=== PATIENT | male | born 1945 | race Caucasian/White ===

== ENCOUNTER 2024-09-13 13:48 | Observation (INO) ==
[2024-09-13 14:28] LABS: Basophils # (auto) 0.05 K/uL (0.00-0.20); Basophils % (auto) 0.6 %; Eosinophils # (auto) 0.23 K/uL (0.00-0.50); Eosinophils % (auto) 2.9 %; Hematocrit (blood only) 42.5 % (42.0-52.0); Hemoglobin 14.5 g/dl (14.0-18.0); Immature Granulocytes # (auto) 0.01 K/uL (0.01-0.20); Immature Granulocytes % (auto) 0.1 %; Lymphocytes # (auto) 2.33 K/uL (1.20-3.40); Lymphocytes % (auto) 29.4 %; Mean Corpuscular Hemoglobin 28.1 pg (25.0-34.0); Mean Corpuscular Hgb Conc 34.1 g/dL (32.0-36.0); Mean Corpuscular Volume 82.4 fL (80.0-100.0); Monocytes # (auto) 0.71 K/uL (0.11-0.59); Neutrophils # (auto) 4.59 K/uL (1.40-6.50); Platelet Count 210 K/uL (130-400); RDW Coefficient of Variation 13.6 % (11.5-14.5); RDW Standard Deviation 41.1 fL (36.4-46.3); Red Blood Count 5.16 M/uL (4.70-6.10); White Blood Count 7.92 K/ul (4.8-10.8)
[2024-09-13 14:31] LABS: Base Excess VBG 0.5 mEq/L; HCO3 VBG 27 mmol/L; Oxygen Saturation VBG < 60.0 %; PCO2 VBG 50 mmHg (38-50); PO2 VBG 24 mmHg; pH VBG 7.34 (7.36-7.41)
[2024-09-13] MEDS: SODIUM CHLORIDE 0.9% 1,000 ML IV ONE ×2 (14:36→17:10)
[2024-09-13 14:41] LABS: Albumin Level 4.4 gm/dl (3.4-5.0); Bilirubin,Total 0.5 mg/dl (0.2-1.0); Calcium 10.1 mg/dl (8.6-10.3); Magnesium 1.6 mg/dl (1.7-2.4); Potassium 4.1 mmol/L (3.5-5.1)
[2024-09-13 14:52] LABS: Albumin Globulin Ratio 1.5 (0.9-2); BUN Creatinine Ratio 16.8 (10-20); Creatinine Clr Calc Pharmacy 28.9 ml/min; Total Protein 7.4 gm/dl (6.0-8.3)
--- NOTE | 2024-09-13 16:05 | CT Scan Report ---
ABDOMEN AND PELVIS CT WITHOUT CONTRAST CT DOSE: 1164.66 mGy.cm HISTORY: cecil TECHNIQUE: Multiaxial CT images of the abdomen and pelvis were performed without contrast. A dose lo wering technique was utilized adhering to the principles of ALARA. COMPARISON STUDY: None FINDINGS: ABDOMEN: Liver, gallbladder, spleen, pancreas, and adrenal glands have an unremarkable non-IV contras t appearance. There is no hydronephrosis. There are a few tiny bilateral renal calculi. No ureteral c alculi. There are mild atherosclerotic calcifications. No abdominal aortic aneurysm. Pelvis: There is a lobulated intraluminal mass anteriorly at the urinary bladder measuring 4 cm with morphology suspicious for urinary bladder cancer. Prostate is mildly enlarged. Urinary bladder is mil dly distended. There is extensive sigmoid diverticulosis. No acute diverticulitis. There is moderate retained stool. No bowel inflammation or obstruction. No free fluid or free air. No enlarged adenopat hy. Osseous structures: There is severe lumbar degenerative disc disease. There is grade 1 anterolisthesi s of L5 on S1 with pars defects at that level. No acute osseous findings. There is mild scoliosis. IMPRESSION: 1. Urinary bladder mass suspicious for malignancy. 2. Otherwise no acute findings seen. 3. A few tiny bilateral renal calculi with no hydronephrosis or ureteral calculi. 4. Otherwise as described. ACT 112: Positive. There are findings on this exam that require communication between the performing entity and the patient following Patient Test Result Information Act ([place] Act 112) guidelines. The above report was generated using voice recognition software. It may contain grammatical, syntax o r spelling errors. Electronically signed by: Luis Manuel Park M.D. 09/13/2024 4:03 PM
[2024-09-13 16:21] LABS: Appearance Urine Clear (Clear); Bacteria Urine Automated None Seen (None Seen); Bilirubin Urine Negative (Negative); Blood Urine 3+ (Negative); Color Urine Yellow; Epithelial Cell Urine Auto 0-2 /hpf (0-2); Glucose Urine UA 3+ (Negative); Ketones Urine Negative (Negative); Leukocyte Esterase Urine Negative (Negative); Nitrite Urine Negative (Negative); Protein Urine 2+ (Negative); RBC Urine Automated >20 /hpf (0-2); Specific Gravity Urine 1.023 (1.000-1.030); Urobilinogen Urine Negative (Negative); WBC Urine Automated 21-50 /hpf (0-5)
[2024-09-13] MEDS ORDERED: STAT IV Infusion **Titration per Protocol STA (16:45)
[2024-09-13] MEDS ORDERED: PHARMACY GLYCEMIC MGMT CONSULT PRN (16:45)
[2024-09-13] MEDS: MAGNESIUM SULFATE / D5W 1 GM/100 ML BAG IV SCH (17:16)
--- NOTE | 2024-09-13 17:37 | History & Physical Report ---
Date of Service September 13, 2024 Assessment & Plan (1) Diabetes mellitus with hyperglycemia, without long-term current use of insulin: (2) Acute kidney injury: (3) Mass of urinary bladder: (4) Hematuria: (5) Hypomagnesemia: (6) Electrolyte abnormality: (7) Hypertension: (8) Chronic renal failure (CRF), stage 3a: (9) Coronary disease: Plan Patient is a 79-year-old gentleman critically ill with uncontrolled diabetes and severe hyperglycemia. This resulted in hypotension and acute kidney injury due to intravascular volume depletion. Patient also with hematuria and noted findings on CT scan concerning for bladder mass. Patient requires hospital level care and interventions including IV medications and specialty consultation. Admit to a monitored setting in the hospital Given additional IV fluid bolus and continue IV fluid resuscitation IV insulin drip, monitor insulin needs over the next 24 hours and transition to subcutaneous insulin Pharmacy consultation for assistance with glycemic management Check hemoglobin A1c, most recent hemoglobin A1c 12.6 in July 2024 Hold amlodipine and losartan in the setting of hypotension and acute kidney injury, continue metoprolol with hold parameters Hold aspirin due to hematuria Consult urology for further evaluation of bladder mass Monitor laboratory studies, anticipate sodium improving as glucose improves. Anticipate renal function improving with hydration Replace magnesium IV, monitor level Consult healthcare educator, informed patient and son at bedside that I anticipate patient will need to go home on insulin to manage his diabetes in the setting of extremely elevated hemoglobin A1c Discussed advanced directives, patient request to be full code Son at bedside updated to patient's condition and overall plan of care History of Present Illness Chief Complaint: Hyperglycemia, polyuria, polydipsia Primary Care Provider: Monserrat Altamirano PA-C Patient is a 79-year-old gentleman with known diabetes just recently presented to his new PCP within the past month. He was complaining of significant polyuria at that time. Patient had some laboratory workup and was noted to be quite hyperglycemic with a significantly elevated hemoglobin A1c. Patient also was treated for urinary tract infection. Returned to his PCP again today complaining of weakness and fatigue and generalized malaise. Also reporting that his sugars are extremely elevated which is unusual for him. PCP sent him to the emergency room for concerns of DKA. In the emergency room severe hyperglycemia was confirmed. Patient was not in DKA. But he did show some evidence of acute kidney injury and hypotension most likely due to dehydration. Also had several electrolyte abnormalities. Referred to our service for further evaluation. At time of evaluation the patient is feeling a little bit better after 1 L of saline. Denies any fever or chills. No cough or cold symptoms. No chest pain or shortness of breath. Does admit to polydipsia and polyuria. Has not really noticed significant blood in his urine. States that his stools have been slightly abnormal and that they are not as frequent or as bulky over the last couple weeks. No blood in his stool. No swelling in his hands arms legs or feet. He is under the impression that his diabetes is very well-co ntrolled and its only gotten out of control within the last couple weeks. When I informed him that his A1c was greater than 12 just about a year ago and greater than 9 2 years ago indicating that his diabetes has been uncontrolled for quite some time he seemed shocked to find out this information. He has never been on insulin. Has not even been regularly checking his sugar due to the fact that he thought his sugars are well-controlled. Patient denies any smoking. Reports that he has not had alcohol beverage for greater than 2 years. Allergies Allergy/AdvReac Type Severity Reaction Status Date / Time codeine Allergy Unknown Verified 07/06/09 03:20 Home Medications Medication Instructions Recorded Confirmed Type amlodipine 5 mg tablet 5 mg PO UD 09/13/24 09/13/24 History amoxicillin 500 mg capsule 500 mg PO BID 09/13/24 09/13/24 History aspirin 325 mg tablet 325 mg PO DAILY 09/13/24 09/13/24 History empagliflozin 10 mg tablet 10 mg PO UD 09/13/24 09/13/24 History (Jardiance) ibuprofen 800 mg PO DIRECTED PRN Pain 09/13/24 09/13/24 History losartan 100 mg tablet 100 mg PO UD 09/13/24 09/13/24 History metformin 500 mg tablet 500 mg PO BID 09/13/24 09/13/24 History metoprolol succinate 50 mg 50 mg PO UD 09/13/24 09/13/24 History tablet,extended release 24 hr mirtazapine 45 mg tablet 45 mg PO PM 09/13/24 09/13/24 History rosuvastatin 40 mg tablet 40 mg PO DAILY 09/13/24 09/13/24 History sitagliptin phosphate 50 mg tablet 50 mg PO UD 09/13/24 09/13/24 History (Januvia) tamsulosin 0.4 mg capsule 0.4 mg PO QAM 09/13/24 09/13/24 History venlafaxine 75 mg capsule,extended 225 mg PO DAILY 09/13/24 09/13/24 History release 24 hr Past Med/Surg History Problem List (Updated 09/13/24 @ 17:36 by Dioni Rutherford DO) History of cardiac catheterization Renal calculi Coronary disease Chronic renal failure (CRF), stage 3a Hypertension Mass of urinary bladder Hematuria Electrolyte abnormality Hypomagnesemia Acute kidney injury Diabetes mellitus with hyperglycemia, without long-term current use of insulin Social History Smoking Status: Former smoker Preferred Language: Burmese Feels Safe at Home: Yes Review of Systems Review of Systems: Pertinent positive and negative review of systems as mentioned in the HPI Physical Exam Physical Exam: Constitutional: Alert, ill in appearance, nontoxic HEENT: Mucous membranes moist. Sclera clear Neck: Soft, no adenopathy Lungs: Clear to auscultation, decreased, no wheezes rales or rhonchi CV: S1-S2, regular Abdomen: Soft, nontender, nondistended Extremities: No significant edema Musculoskeletal: No significant joint tenderness Neuro: No focal deficits Psych: Cooperative, flat affect Results & Data Results & Data Vital Signs (Past 12 Hours) Vital Signs Temp Pulse Resp BP Pulse Ox O2 Del Method 09/13/24 13:54 36.7 C 66 18 95/61 L 95 Room Air Diagnostic Findings Reviewed imaging, laboratory and diagnostic studies. Pertinent findings as below. CBC within normal ranges Venous pH 7.34 Sodium 131 Potassium 4.1 Chloride at 93 Carbon dioxide 31 BUN 34 Creatinine 2.02 Glucose of 464 Magnesium 1.6 ALT 53 Alk phos 109 Urinalysis significant for: 3+ glucose, 3+ blood, negative nitrite, negative leukocyte esterase, no bacteria CT of the abdomen pelvis report reviewed noted a urinary bladder mass concerning for malignancy, few small bilateral renal calculi with no evidence of obstruction. Reviewed outside EMR: Reviewed past medical, surgical, family, social history Reviewed outpatient medication list Hemoglobin A1c 12.6 on 08/09/2024 Echocardiogram June 2024: Normal ejection fraction 60-65%. No significant wall motion abnormalities, no significant pulmonary hypertension, no significant valve abnormalities Code Status & VTE Plan VTE Prophylaxis Plan VTE Prophylaxis will be ordered: Yes
[2024-09-13] MEDS: INSULIN REGULAR 250 UNITS in SODIUM CHLORIDE 0.9% 247.5 ML IV SCH (17:39)
[2024-09-13] MEDS ORDERED: ACETAMINOPHEN 325 MG TAB PO PRN (18:41)
[2024-09-13] MEDS ORDERED: ALUMINUM/MAGNESIUM SUSP 30 ML UDC PO PRN (18:41)
--- NOTE | 2024-09-13 19:58 | Urology Consultation ---
Date of Consultation September 13, 2024 Assessment & Plan (1) Mass of urinary bladder: Patient has been admitted to the hospitalist service. From urologic perspective we recommend the following: Patient is currently being treated for uncontrolled diabetes we will defer management of this to primary service Concerning the patient's bladder mass, and underlying malignancy has not been excluded I will order a urine cytology The patient will likely require cystoscopy in the future Would monitor the patient's urinary habits, particular in the setting of gross hematuria. If the patient develops any urinary retention straight catheterization or Arita catheter placement can be employed but at the present time this does not appear to be needed Additional recommendations will be forthcoming based on his clinical course as unfolds History of Present Illness Reason for Consultation: Bladder mass Attending Physician: Dioni Rutherford, History of Present Illness This is a 79-year-old male who was admitted to the hospital earlier today. The patient presented to his primary care physician's office earlier this month with complaints of polyuria. There is concern the patient was suffering from a urinary tract infection for which he was treated. Patient returned to his primary care physician earlier today for follow-up and is complaining of generalized weakness and malaise. Patient is noted to have markedly elevated blood sugar in the office and there was concern that he had DKA so he was sent to the emergency department for evaluation. As part of his evaluation he did have a CT scan abdomen pelvis showing a bladder mass which is described below. For this reason urology was asked to see the patient. I did question the patient not urologic symptoms and he does report having gross hematuria and on and off fashion with some blood clots for several weeks. He says that he has lost proximately 5 pounds over the past week or 2. He says that for the past several weeks he has had a weak urine stream but denies any dysuria. He does report urinary frequency. He denies any fevers, shakes, or chills. He denies any back or flank pain Since arrival to the hospital the patient has had labs and imaging which independent reviewed. A CT scan abdomen pelvis showed the patient had a mass in the urinary bladder concerning for malignancy. Labs including CBC were white blood cell count, hemoglobin, hematocrit, and platelet count were normal. Chemistry profile showed sodium was 131 with a normal potassium. BUN and creatinine were 34 and 2.0. (No labs were available for comparison). Urinalysis showed 21-50 white blood cells per high-power field but was negative for bacteria, leukocyte esterase, or nitrites. At the time my interview the patient was resting comfortably in bed and he was in no distress Allergies Allergy/AdvReac Type Severity Reaction Status Date / Time codeine Allergy Unknown Verified 07/06/09 03:20 Home Medications Medication Instructions Recorded Confirmed Type amlodipine 5 mg tablet 5 mg PO UD 09/13/24 09/13/24 History amoxicillin 500 mg capsule 500 mg PO BID 09/13/24 09/13/24 History aspirin 325 mg tablet 325 mg PO DAILY 09/13/24 09/13/24 History empagliflozin 10 mg tablet 10 mg PO UD 09/13/24 09/13/24 History (Jardiance) ibuprofen 800 mg PO DIRECTED PRN Pain 09/13/24 09/13/24 History losartan 100 mg tablet 100 mg PO UD 09/13/24 09/13/24 History metformin 500 mg tablet 500 mg PO BID 09/13/24 09/13/24 History metoprolol succinate 50 mg 50 mg PO UD 09/13/24 09/13/24 History tablet,extended release 24 hr mirtazapine 45 mg tablet 45 mg PO PM 09/13/24 09/13/24 History rosuvastatin 40 mg tablet 40 mg PO DAILY 09/13/24 09/13/24 History sitagliptin phosphate 50 mg tablet 50 mg PO UD 09/13/24 09/13/24 History (Januvia) tamsulosin 0.4 mg capsule 0.4 mg PO QAM 09/13/24 09/13/24 History venlafaxine 75 mg capsule,extended 225 mg PO DAILY 09/13/24 09/13/24 History release 24 hr Patient History Social History Smoking Status: Former smoker Hx Alcohol Use: No Hx Substance Use: No Preferred Language: Amharic Communication Ability: Effective 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 Required: No Beliefs That Will Affect Care: None Current Living Situation: Alone Other Information That Helps Us Care for You: No Feels Safe at Home: Yes Assistive Devices: Denture - Upper, Denture - Lower and Hearing Aid - Left Review of Systems Review of Systems: All systems reviewed & are unremarkable except as noted in HPI & below Physical Exam Constitutional: WD/WN, vitals as above Eyes: no conjunctival abnormality ENMT: Ears: no hearing impairment and no external ear abnormality Mouth: no oropharynx abnormality Neck: trachea midline Respiratory: normal respiratory effort; no respiratory distress and no labored breathing Cardiovascular: Rate/Rhythm: regular rate and regular rhythm Gastrointestinal (Abdomen): Soft and nontender to palpation Musculoskeletal: No gross orthopedic abnormalities Skin: no jaundice Neurologic: moves all extremities Psychiatric: A+Ox3, euthymic affect Genitourinary: No CVA tenderness with percussion bilaterally Results & Data Vital Signs (Past 12 Hours) Vital Signs Temp Pulse Pulse Resp BP BP Pulse Ox 09/13/24 18:47 36.7 C 55 L 136/74 100 09/13/24 18:11 49 L 22 111/62 98 09/13/24 17:56 51 L 09/13/24 17:22 54 L 20 89/62 L 98 09/13/24 13:54 36.7 C 66 18 95/61 L 95 O2 Del Method 09/13/24 18:47 Room Air 09/13/24 18:11 09/13/24 17:56 09/13/24 17:22 Room Air 09/13/24 13:54 Room Air PG Care Time/CCT Total # of Minutes Spent Total Time Spent with Patient: Total time spent is greater than 50% in coordination of care (as documented) at patient's floor/unit and/or counseling patient: Coding Level of Care Code 29248 INT INP/OBS CARE 3/75MIN Diagnoses Mass of urinary bladder N32.89
[2024-09-13] MEDS ORDERED: CARBOHYDRATES FOR HYPOGLYCEMIA PO PRN (20:00)
[2024-09-13] MEDS ORDERED: GLUCOSE 40% GEL 15 GM TUBE PO PRN (20:00)
[2024-09-13] MEDS ORDERED: GLUCAGON FOR INJ 1 MG VIAL SQ PRN (20:00)
[2024-09-13] MEDS ORDERED: GLUCOSE 10 TAB/TUBE PO PRN (20:00)
[2024-09-13] MEDS ORDERED: DEXTROSE 50% 50 ML SYRINGE IV PRN (20:00)
[2024-09-13] MEDS: INSULIN ASPART PER UNIT CHARGE SC SCH (20:23)
[2024-09-13] MEDS: SODIUM CHLORIDE 0.9% 1,000 ML IV SCH (20:26)
[2024-09-13] MEDS ORDERED: INSULIN ASPART PER UNIT CHARGE SC SCH (21:00)
[2024-09-13 21:34] LABS: Potassium 3.9 mmol/L (3.5-5.1)
[2024-09-13 21:39] LABS: BUN Creatinine Ratio 17.3 (10-20); Creatinine Clr Calc Pharmacy 33.7 ml/min
[2024-09-13] MEDS: MIRTAZAPINE SOLTAB 15 MG PO SCH (22:12)
--- NOTE | 2024-09-14 | Emergency Department Note ---
History of Present Illness General Chief complaint: Hyperglycemia Stated complaint: REF BY DOC,HYPERGLYCEMIA Time Seen by Provider: 09/13/24 15:10 History of Present Illness Provider complaint: High blood sugar 79-year-old male was referred to the emergency department by his PCP for high blood sugar. Patient reports they did blood work and they told him his blood sugar was high and told him to come to the emergency department. He denies any chest pain difficulty breathing nausea vomiting diarrhea. Patient does report difficulty urinating. No hematuria. No falls or traumas. Home Medications Medication Instructions Recorded Confirmed Type amlodipine 5 mg tablet 5 mg PO UD 09/13/24 09/13/24 History amoxicillin 500 mg capsule 500 mg PO BID 09/13/24 09/13/24 History aspirin 325 mg tablet 325 mg PO DAILY 09/13/24 09/13/24 History empagliflozin 10 mg tablet 10 mg PO UD 09/13/24 09/13/24 History (Jardiance) ibuprofen 800 mg PO DIRECTED PRN Pain 09/13/24 09/13/24 History losartan 100 mg tablet 100 mg PO UD 09/13/24 09/13/24 History metformin 500 mg tablet 500 mg PO BID 09/13/24 09/13/24 History metoprolol succinate 50 mg 50 mg PO UD 09/13/24 09/13/24 History tablet,extended release 24 hr mirtazapine 45 mg tablet 45 mg PO PM 09/13/24 09/13/24 History rosuvastatin 40 mg tablet 40 mg PO DAILY 09/13/24 09/13/24 History sitagliptin phosphate 50 mg tablet 50 mg PO UD 09/13/24 09/13/24 History (Januvia) tamsulosin 0.4 mg capsule 0.4 mg PO QAM 09/13/24 09/13/24 History venlafaxine 75 mg capsule,extended 225 mg PO DAILY 09/13/24 09/13/24 History release 24 hr Allergies Allergy/AdvReac Type Severity Reaction Status Date / Time codeine Allergy Unknown Verified 07/06/09 03:20 Past Med/Surg History Problem List (Updated 09/14/24 @ 00:00 by Parag Savage MD) History of cardiac catheterization Renal calculi Coronary disease Chronic renal failure (CRF), stage 3a Hypertension Mass of urinary bladder (Acute) Hematuria Electrolyte abnormality Hypomagnesemia Acute kidney injury (Acute) Diabetes mellitus with hyperglycemia, without long-term current use of insulin Social History Smoking Status: Former smoker Hx Alcohol Use: No Hx Substance Use: No Preferred Language: Mongolian Communication Ability: Effective Hairspring Vibrator Required: No Beliefs That Will Affect Care: None Current Living Situation: Alone Other Information That Helps Us Care for You: No Feels Safe at Home: Yes Assistive Devices: Denture - Upper, Denture - Lower and Hearing Aid - Left Physical Exam Vital Signs Vital Signs - 24 hr 09/13/24 13:54 Temperature 36.7 C Temperature Source Temporal Artery Scan Pulse Rate 66 Respiratory Rate 18 Respiratory Effort / Characteristics Non-Labored Spontaneous Respiratory Depth Normal Blood Pressure 95/61 L Blood Pressure Mean 72 Pulse Oximetry 95 Oxygen Delivery Method Room Air Sepsis Recent Fever Within 48 Hours No Sepsis New/Unexplained Change in Mental Status N/A Sepsis Action Taken by Nursing No Action Required Physical Exam GENERAL: He is oriented to person, place, and time. He appears well-developed and well-nourished. He does not appear distressed. HENT: Exam performed. - Head: Normocephalic and atraumatic. - Right Ear: External ear normal. No mastoid erythema - Left Ear: External ear normal. No mastoid erythema - Mouth/Throat: The oropharynx is clear and moist. No trismus in the jaw. No dental abscesses or uvula swelling. No oropharyngeal exudate or tonsillar abscesses. EYES: Conjunctivae and EOM are normal. Pupils are equal, round, and reactive to light. Right eye exhibits no discharge. Left eye exhibits no discharge. No scleral icterus. NECK: Normal range of motion. Neck supple. No JVD present.No rigidity. No tracheal deviation and normal range of motion present. CV: Normal rate, regular rhythm, normal heart sounds and intact distal pulses. There is no peripheral edema. Palpable radial pulses bue. PULM/CHEST: Effort normal and breath sounds normal. No respiratory distress. No stridor. He has no wheezes. He has no rales. - Chest Wall: He exhibits no tenderness. ABD: The abdomen is soft. He has no distension. No mass is present. There is no tenderness. There is no rebound, no guarding. MUSC/SKEL: Normal range of motion. There is no peripheral edema, tenderness or deformity. NEURO: He is alert and oriented to person, place, and time. He has normal strength. No cranial nerve deficit or sensory deficit. Coordination and gait normal. GCS eye subscore is 4. GCS verbal subscore is 5. GCS motor subscore is 6. Cerebellar tests wnl. SKIN: Skin is warm and dry. He is not diaphoretic. PSYCH: He has a normal mood and affect. Behavior is normal. Judgment and thought content normal. Course Course 1510: The patient was evaluated in room D1A. A complete history and physical exam was performed Cardiac monitoring: An order was placed for continuous cardiac monitoring. The monitor shows a rate of 50 with sinus rhythm interpreted by me Patient was seen during a time of extreme volume and extreme acuity in the emergency department. Nursing triage protocols were initiated and labs were drawn by protocol in the triage area. Labs show creatinine of 2 and glucose greater than 400 with no evidence of anion gap elevation. External medical records were reviewed they were obtained by Angeles the case technician. Patient's creatinine usually runs around 1-1.2. Will obtain CT of the abdomen pelvis given the patient's PAUL. IV fluids started on the patient. 1655: Vital signs stable. Imaging shows no kidney stones or obstructions but does show possible bladder mass. Urology Dr. Barnes was made aware of this. Patient be admitted to the [facility] team. Administered Medications Magnesium Sulfate/Dextrose (Magnesium Sulfate / D5w) 1 gm in 100 mls @ 50 mls/hr IV Q2H KIRSTIE Stop: 09/14/24 00:44 Last Admin: 09/13/24 22:09 Dose: 25 mls/hr Documented By: Infusion: 09/13/24 22:09 Dose: Infused Documented By: Admin: 09/13/24 20:25 Dose: 25 mls/hr Documented By: Infusion: 09/13/24 18:29 Dose: Infused Documented By: Admin: 09/13/24 17:33 Dose: 50 mls/hr Documented By: Infusion: 09/13/24 17:33 Dose: Infused Documented By: Admin: 09/13/24 17:16 Dose: 50 mls/hr Documented By: MAIKEL Insulin Human Regular 250 (units/ Sodium Chloride) 250 mls @ 1.4 mls/hr IV .Q24H KIRSTIE; Protocol Stop: 10/13/24 16:59 Last Titration: 04/15/25 23:25 Dose: 1.4 unit/hr, 1.4 mls/hr Documented By: PARISH Co-signed By: CHELSEA Titration: 09/13/24 22:24 Dose: 1.8 unit/hr, 1.8 mls/hr Documented By: PARISH Co-signed By: CHELSEA Titration: 09/13/24 21:21 Dose: 2.3 unit/hr, 2.3 mls/hr Documented By: PARISH Co-signed By: CHELSEA Titration: 09/13/24 20:24 Dose: 1.9 unit/hr, 1.9 mls/hr Documented By: PARISH Co-signed By: CHLESEA Titration: 09/13/24 19:36 Dose: 1.6 unit/hr, 1.6 mls/hr Documented By: PARISH Co-signed By: ANYI Admin: 09/13/24 17:39 Dose: 2 unit/hr, 2 mls/hr Documented By: MAIKEL Co-signed By: TIFFANI Sodium Chloride (Nss) 1,000 mls @ 125 mls/hr IV .Q8H KIRSTIE Stop: 09/14/24 18:40 Last Admin: 09/13/24 20:26 Dose: 125 mls/hr Documented By: PARISH Insulin Aspart (Insulin Aspart Per Unit Charge) 0 units SC ACHS KIRSTIE Stop: 10/13/24 19:59 Last Admin: 09/13/24 20:23 Dose: 4 units Documented By: PARISH Co-signed By: CHELSEA Mirtazapine (Mirtazapine Soltab 15 Mg) 45 mg PO PM KIRSTIE Stop: 10/13/24 20:59 Last Admin: 09/13/24 22:12 Dose: 45 mg Documented By: PARISH Discontinued Medications Sodium Chloride (Nss) 1,000 mls @ 999 mls/hr IV .Q1H1M ONE Stop: 09/13/24 15:32 Last Infusion: 09/13/24 15:37 Dose: Infused Documented By: Admin: 09/13/24 14:36 Dose: 999 mls/hr Documented By: DONNIE Sodium Chloride (Nss) 1,000 mls @ 999 mls/hr IV .Q1H1M ONE Stop: 09/13/24 17:44 Last Infusion: 09/13/24 18:29 Dose: Infused Documented By: Admin: 09/13/24 17:10 Dose: 999 mls/hr Documented By: MAIKEL Medical Decision Making Laboratory Data Attestation: I reviewed the patient's lab results. 09/13/24 14:14 09/13/24 20:41 Lab Results 09/13/24 09/13/24 09/13/24 Range/Units 14:05 14:14 14:20 WBC 7.92 (4.8-10.8) K/ul RBC 5.16 (4.70-6.10) M/uL Hgb 14.5 (14.0-18.0) g/dl Hct 42.5 (42.0-52.0) % MCV 82.4 (80.0-100.0) fL MCH 28.1 (25.0-34.0) pg MCHC 34.1 (32.0-36.0) g/dL RDW Std Deviation 41.1 (36.4-46.3) fL RDW Coeff of Merrick 13.6 (11.5-14.5) % Plt Count 210 (130-400) K/uL MPV 12.0 (9.4-12.4) fL Immature Gran % (Auto) 0.1 % Neut % (Auto) 58.0 % Lymph % (Auto) 29.4 % [place] % (Auto) 9.0 % Eos % (Auto) 2.9 % Baso % (Auto) 0.6 % Neut # (Auto) 4.59 (1.40-6.50) K/uL Lymph # (Auto) 2.33 (1.20-3.40) K/uL [place] # (Auto) 0.71 H (0.11-0.59) K/uL Eos # (Auto) 0.23 (0.00-0.50) K/uL Baso # (Auto) 0.05 (0.00-0.20) K/uL Immature Gran # (Auto) 0.01 (0.01-0.20) K/uL VBG pH 7.34 L (7.36-7.41) VBG pCO2 50 (38-50) mmHg VBG pO2 24 mmHg VBG HCO3 27 mmol/L VBG O2 Saturation < 60.0 % VBG Base Excess 0.5 mEq/L Sodium 131 L (136-145) mmol/L Potassium 4.1 (3.5-5.1) mmol/L Chloride 93 L (98-107) mmol/L Carbon Dioxide 31 (21-32) mmol/L Anion Gap 7 (3-11) BUN 34 H (6-23) mg/dl Creatinine 2.02 H (0.6-1.4) mg/dl Est Cr Clr Drug Dosing 28.9 ml/min eGFR 33.13 BUN/Creatinine Ratio 16.8 (10-20) Glucose 464 H* (70-99(Fasting)) mg/dl POC Glucose 449 H* (70-99) mg/dl Calcium 10.1 (8.6-10.3) mg/dl Magnesium 1.6 L (1.7-2.4) mg/dl Total Bilirubin 0.5 (0.2-1.0) mg/dl AST 33 (13-39) U/L ALT 53 H (7-52) U/L Alkaline Phosphatase 109 H (34-104) U/L Total Protein 7.4 (6.0-8.3) gm/dl Albumin 4.4 (3.4-5.0) gm/dl Globulin 3.0 (2.5-4.0) gm/dl Albumin/Globulin Ratio 1.5 (0.9-2) Urine Color Urine Appearance (Clear) Urine pH (4.5-7.5) Ur Specific Mayer (1.000-1.030) Urine Protein (Negative) Urine Glucose (UA) (Negative) Urine Ketones (Negative) Urine Blood (Negative) Urine Nitrite (Negative) Urine Bilirubin (Negative) Urine Urobilinogen (Negative) Ur Leukocyte Esterase (Negative) Urine WBC (Auto) (0-5) /hpf Urine RBC (Auto) (0-2) /hpf U Hyaline Cast (Auto) (0-2) /lpf U Epithel Cells (Auto) (0-2) /hpf Urine Bacteria (Auto) (None Seen) 09/13/24 09/13/24 Range/Units 15:44 17:06 WBC (4.8-10.8) K/ul RBC (4.70-6.10) M/uL Hgb (14.0-18.0) g/dl Hct (42.0-52.0) % MCV (80.0-100.0) fL MCH (25.0-34.0) pg MCHC (32.0-36.0) g/dL RDW Std Deviation (36.4-46.3) fL RDW Coeff of Merrick (11.5-14.5) % Plt Count (130-400) K/uL MPV (9.4-12.4) fL Immature Gran % (Auto) % Neut % (Auto) % Lymph % (Auto) % [place] % (Auto) % Eos % (Auto) % Baso % (Auto) % Neut # (Auto) (1.40-6.50) K/uL Lymph # (Auto) (1.20-3.40) K/uL [place] # (Auto) (0.11-0.59) K/uL Eos # (Auto) (0.00-0.50) K/uL Baso # (Auto) (0.00-0.20) K/uL Immature Gran # (Auto) (0.01-0.20) K/uL VBG pH (7.36-7.41) VBG pCO2 (38-50) mmHg VBG pO2 mmHg VBG HCO3 mmol/L VBG O2 Saturation % VBG Base Excess mEq/L Sodium (136-145) mmol/L Potassium (3.5-5.1) mmol/L Chloride (98-107) mmol/L Carbon Dioxide (21-32) mmol/L Anion Gap (3-11) BUN (6-23) mg/dl Creatinine (0.6-1.4) mg/dl Est Cr Clr Drug Dosing ml/min eGFR BUN/Creatinine Ratio (10-20) Glucose (70-99(Fasting)) mg/dl POC Glucose 315 H* (70-99) mg/dl Calcium (8.6-10.3) mg/dl Magnesium (1.7-2.4) mg/dl Total Bilirubin (0.2-1.0) mg/dl AST (13-39) U/L ALT (7-52) U/L Alkaline Phosphatase (34-104) U/L Total Protein (6.0-8.3) gm/dl Albumin (3.4-5.0) gm/dl Globulin (2.5-4.0) gm/dl Albumin/Globulin Ratio (0.9-2) Urine Color Yellow Urine Appearance Clear (Clear) Urine pH 6.0 (4.5-7.5) Ur Specific Mayer 1.023 (1.000-1.030) Urine Protein 2+ H (Negative) Urine Glucose (UA) 3+ H (Negative) Urine Ketones Negative (Negative) Urine Blood 3+ H (Negative) Urine Nitrite Negative (Negative) Urine Bilirubin Negative (Negative) Urine Urobilinogen Negative (Negative) Ur Leukocyte Esterase Negative (Negative) Urine WBC (Auto) 21-50 H (0-5) /hpf Urine RBC (Auto) >20 H (0-2) /hpf U Hyaline Cast (Auto) 3-5 H (0-2) /lpf U Epithel Cells (Auto) 0-2 (0-2) /hpf Urine Bacteria (Auto) None Seen (None Seen) Imaging Data Radiologist's Impression: Abdomen/Pelvis CT 09/13/24 15:[address] WITHOUT CONTRAST CT DOSE: 1164.66 mGy.cm HISTORY: paul TECHNIQUE: Multiaxial CT images of the abdomen and pelvis were performed without contrast. A dose lowering technique was utilized adhering to the principles of ALARA. COMPARISON STUDY: None FINDINGS: ABDOMEN: Liver, gallbladder, spleen, pancreas, and adrenal glands have an unremarkable non-IV contrast appearance. There is no hydronephrosis. There are a few tiny bilateral renal calculi. No ureteral calculi. There are mild atherosclerotic calcifications. No abdominal aortic aneurysm. Pelvis: There is a lobulated intraluminal mass anteriorly at the urinary bladder measuring 4 cm with morphology suspicious for urinary bladder cancer. Prostate is mildly enlarged. Urinary bladder is mildly distended. There is extensive sigmoid diverticulosis. No acute diverticulitis. There is moderate retained stool. No bowel inflammation or obstruction. No free fluid or free air. No enlarged adenopathy. Osseous structures: There is severe lumbar degenerative disc disease. There is grade 1 anterolisthesis of L5 on S1 with pars defects at that level. No acute osseous findings. There is mild scoliosis. IMPRESSION: 1. Urinary bladder mass suspicious for malignancy. 2. Otherwise no acute findings seen. 3. A few tiny bilateral renal calculi with no hydronephrosis or ureteral calculi. 4. Otherwise as described. ACT 112: Positive. There are findings on this exam that require communication between the performing entity and the patient following Patient Test Result Information Act ([place] Act 112) guidelines. The above report was generated using voice recognition software. It may contain grammatical, syntax or spelling errors. Electronically signed by: Luis Manuel Park M.D. 09/13/2024 4:03 PM [facility] Narrative 1510: The patient was evaluated in room D1A. A complete history and physical exam was performed Cardiac monitoring: An order was placed for continuous cardiac monitoring. The monitor shows a rate of 50 with sinus rhythm interpreted by me Patient was seen during a time of extreme volume and extreme acuity in the emergency department. Nursing triage protocols were initiated and labs were drawn by protocol in the triage area. Labs show creatinine of 2 and glucose greater than 400 with no evidence of anion gap elevation. External medical records were reviewed they were obtained by Angeles the case technician. Patient's creatinine usually runs around 1-1.2. Will obtain CT of the abdomen pelvis given the patient's PAUL. IV fluids started on the patient. 1655: Vital signs stable. Imaging shows no kidney stones or obstructions but does show possible bladder mass. Urology Dr. Barnes was made aware of this. Patient be admitted to the Orth[facility]edic Hospitalist team. Impression & Plan Mass of urinary bladder, Acute kidney injury Discharge Plan Visit Data Chief Complaint: Hyperglycemia Stated Complaint: REF BY DOC,HYPERGLYCEMIA ED Provider: Parag Savage Discharge Problem: Mass of urinary bladder, Acute kidney injury Patient Disposition: Admitted As Inpatient Discharge Instructions Interventions: ED Discharge Assessment Last Done: 09/13/24 18:18
--- OUTSIDE RECORDS SUMMARY | 2024-09-14 01:21 | External Medical Summary | Summary of Care ---
Author Name Unknown Organization [facility] Address [address] [address] Phone [phone] Care Team Providers Care Sampling Expert Name Role Phone Tahir Schrader DO Primary Care Provider Reason for Referral * Evaluate & Treat - Unlimited Visits (Within 30 days (routine)) - Authorized Specialty Diagnoses / Procedures Referred By Contstacey t Referred To Contact Urology Diagnoses Hematuria, unspecified type Chronic kidney disease, stage 3a (HCC) Urinary frequency Tahir Schrader DO [address] [place] [address] Phone: tel: fax: Referral ID Status Reason Start Date Expiration Date Visits Requested Visits Authorized [id number] Authorized Specialty Services Required 09/02/[phone] Question Answer Referral Priority Within 30 days (routine) Where should this appointment be scheduled? [facility] What is the patient being referred for? Urinary Concerns Reason for Visit * Reason Onset Date Comments Referral 09/01/2024 Encounter Details Date Type Department Care Team (Late st Contact Info) Description 09/01/2024 Telephone Family Practice [facility] [address] [place] [address] Tahir Schrader DO [address] [place] [address] Referral Allergies Active Allergy Reactions Criticality Noted Date Comments Sina Inhibitors 11/14/2016 Codeine Edema face/lips/tongue High 12/13/2020 Lisinopril Cough 11/28/2016 Morphine And Codeine Edema face/lips/tongue High documented as of this encounter (statuses as of 09/06/2024) Medications NITROGLYCERIN 0.4 MG SL SUBLIndications:A ngina pectoris (HCC) One tablet under tongue if needed for chest pain. May repeat 3 times. If chest pain continues, call [phone] Tab 11 0 Active Losartan Potassium 100 MG Oral Tablet (Cozaar)Indicatio ns:Essential hypertension with goal blood pressure less than 140/90 Take 1 Tablet by mouth in the morning. 90 Tablet 3 4 Active Aspirin 325 MG Oral Tablet Delayed Release Take 1 Tablet by mouth in the morning. Active amLODIPine Besylate 5 MG Oral Tablet (Norvasc) TAKE 1 TABLET EVERY DAY 90 Tablet 2 4 Active Rosuvastatin Calcium 40 MG Oral Tablet (Crestor) TAKE 1 TABLET EVERY DAY 90 Tablet 2 4 Active metFORMIN HCl 500 MG Oral Tablet (Glucophage)Indic ations:Impaired fasting glucose TAKE 1 TABLET TWICE DAILY WITH MORNING AND EVENING MEALS 180 Tablet 3 4 Active Venlafaxine HCl ER 75 MG Oral Capsule Extended Release 24 Hour (Effexor XR)Indications:Ma charissa depressive disorder, recurrent, in remission (HCC) TAKE 3 CAPSULES EVERY DAY 270 Capsule 3 4 Active Metoprolol Succinate ER 50 MG Oral Tablet Extended Release 24 Hour (toPROL XL)Indications:HT N, goal below 130/80 TAKE 1 TABLET EVERY MORNING 90 Tablet 3 4 Active Mirtazapine 45 MG Oral Tablet (Remeron)Indicati ons:Major depressive disorder, recurrent, in remission (HCC) TAKE 1 TABLET AT BEDTIME 90 Tablet 2 5 Active Tamsulosin HCl 0.4 MG Oral Capsule (Flomax)Indicatio ns:Chronic kidney disease, unspecified CKD stage TAKE 1 CAPSULE EVERY MORNING 90 Capsule 2 5 Active documented as of this encounter (statuses as of 09/06/2024) Active Problems Problem Noted Date Diagnosed Date Chronic kidney disease, stage 3a 07/15/2021 Overview: Per CKD protocol Assessment & Plan (08/09/2024 2:44 PM EDT): Orders: RENAL FUNCTION PANEL; Future Major depressive disorder, recurrent, in remissi on 12/13/2020 Assessment & Plan (08/09/2024 2:44 PM EDT): Stable on effexor Type 2 diabetes mellitus wit h hemoglobin A1c goal of less than 8.0% 12/12/2019 Assessment & Plan (08/09/2024 2:44 PM EDT): Orders: ALBUMIN / CREATININE RATIO, URINE; Future HEMOGLOBIN A1C; Future History of kidney stones 03/01/2019 Essential hypertension with goal blood pressure less than 140/90 02/11/2016 Assessment & Plan (08/09/2024 2:44 PM EDT): Below goal, as below History of tobacco use 10/02/2007 Esophageal reflux 10/02/2007 Coronary artery disease invo lving [place] coronary artery of [place] heart without angina pectoris Assessment & Plan (08/09/2024 2:44 PM EDT): On statin documented as of this encounter (statuses as of 09/06/2024) Resolved Problems Problem Noted Date Diagnosed Date Resolved Date Major depressive disorder, r ecurrent, in remission 02/15/2018 03/15/2019 Type 2 diabetes mellitus wit h hemoglobin A1c goal of less than 7.5% 11/14/2016 12/12/2019 Nephrolithiasis 11/12/2016 03/01/2019 Overview (11/12/2016): On CT 10/2016 ADVANCE DIRECTIVE INFORMATION 12/14/2006 04/04/2024 Overview (12/14/2006): Information offered-patient declined. documented as of this encounter (statuses as of 09/06/2024) Immunizations Name Administration Dates Next Due COVID-19 mRNA, LNP-s, No Pre serve, 2-Dose Series (The Smartphone Physical) 11/21/2020,10/24/2020 Covid-19, Mrna, Lnp-s, Pf, B ivalent, 30 Mcg, IM, 12 yrs and above (Pfizer) 02/21/2022 Pneumococcal Conjugate Vacc, 13 Valent (Prevnar) 08/03/2014 Pneumococcal Polysaccharide PPV23 (Pneumovax) Season Influenza, Quad, PF, Adjuvanted, 65+ Yrs, IM (FLUAD) 06/13/2020 Seasonal Influenza Vac., MDV, IM, 0.5 mL (Fluzon e) 04/03/2014 Seasonal Influenza, PF, 6 M & above, IM , (FluLaval or Fluzone) 02/15/2018 Seasonal Influenza, Quadrivalent Hd (Fluzone Hd) 03/05/2023,02/11/2022 Seasonal Influenza, Quadrivalent, No Preserve, I M 02/12/2017,02/11/2016 Seasonal Influenza, Trivalen t, Adjuvanted, 65+ YRS, PF, (Fluad) 03/15/2019 TDAP (age 10 and older)(Boostrix) 03/08/2012 documented as of this encounter Social History Tobacco Use Types Packs/Day Years Used Date Smoking Tobacco: Former Cigarettes 1 10 0 06/01/1979 - 06/01/1989 Smokeless Tobacco: Former Comments:quit in 1993 Alcohol Use Standard Drinks/Week Comments Yes 0 (1 standard drink = 0.6 oz pur e alcohol) whiskey 3-4 times per week PHQ-2 Answer Date Recorded PHQ Adult Total Score 2 08/09/2024 Hunger Vital Sign Answer Date Recorded Within the past 12 months, y ou worried that your food would run out before you got the money to buy more. Never true 08/10/19 25 Within the past 12 months, t he food you bought just didn't last and you didn't have money to get more. Never true 08/09/2024 Childcare Answer Date Recorded Do you feel overwhelmed with taking care of a child, family member or friend? No 08/09/2024 Does your family need help f inding childcare? (Household - for ages 0-17 years) Not on file 08/09/2024 Clothing Answer Date Recorded Have you been unable to get clothing when it was really needed? No 08/09/2024 Is your family able to get c lothes or diapers when needed? (Household - for ages 0-17 years) Not on file 08/09/2024 Personal Safety Answer Date Recorded Do you feel unsafe or have concerns for your saf ety? No 08/09/2024 Do you have concerns for you r family's safety? (Household - for ages 0-17 years) Not on file 08/09/2024 Utilities Answer Date Recorded Do you have trouble paying y our heating, water, or electric bill? No 08/09/2024 Is your family able to pay t he heat, water, or electric bill? (Household - for ages 0-17 years) Not on file 08/09/2024 Does your family have access to good internet? (Household - for ages 0-17 years) Not on file 08/09/2024 Employment Status Answer Date Recorded Are you unemployed or without regular income? No 08/09/2024 Does the household have a re lar source of income? (Household - for ages 0-17 years) Not on file 08/09/2024 Social Connections Answer Date Recorded How often do you feel lonely or isolated from those around you? Sometimes 08/09/2024 Financial Resource Strain Answer Date R ecorded Do you have any trouble payi ng for your medications, or do you think you might in the future? No 08/09/2024 Does your family have troubl e paying for medicine? (Household - for ages 0-17 years) Not on file 08/09/2024 Transportation Needs Answer Date Record ed Do you have trouble getting a ride to medical visits or work? (Adult - for ages 18 years and over) Not on file 08/09/2024 Does your family have a hard time getting a ride to doctors visits? (Household - for ages 0-17 years) Not on file 08/09/2024 Has lack of transportation k ept you from medical appointments, meetings, work, or from getting things needed for daily living? Check all that apply. No 08/09/2024 Do you (or your family) have trouble finding or paying for a ride (transportation)? (Household - for ages 0-17 years) Not on file 08/09/2024 Housing Stability Answer Date Recorded Do you currently live in a s helter or have no steady place to sleep at night? No 08/09/2024 Do you think you are at risk of becoming homeless? (Adult - for ages 18 years and over) Not on file 08/09/2024 Does your family worry about paying for your home or becoming homeless? (Household - for ages 0-17 years) Not on file 0 08/09/2024 Are you homeless or worried that you might be in the future? No 08/09/2024 Are you (or your family) julián eless or worried that you might be in the future? (Household - for ages 0-17 years) Not on file Food Insecurity Answer Date Recorded Within the past 12 months, y ou worried that your food would run out before you got the money to buy more. Never true 08/10/19 25 Within the past 12 months, t he food you bought just didn't last and you didn't have money to get more. Never true 08/09/2024 Do you need food for this week? 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 09/05/2024 * Telephone Encounter - Ameena Gallegos OSA - 09/01/2024 11:40 AM EDT Has the patient been seen for this problem? (Y/N)?: yes If No, an appt needs to be scheduled before a referral will be placed (exception: proceed with referral request if referral request is for a yearly routine appointment with speciality) Patient Name: Curtis Lindsay Jr. Patient Primary care provider: Tahir Schrader, DO Does this need to be an insurance referral (Y/N)?: yes If Yes, does the insurance referral need to be placed into the [facility] system? Name of preferred specialist: Type of specialist: urology [facility] of specialist: [facility] Phone #: [facility]ist[facility] Fax #: [phone] Reason for visit: trouble urinating Date of visit: waiting for referral documented in this encounter Plan of Treatment Upcoming Encounters Date Type Department Care Team (Late st Contact Info) Description 11/16/2024 2:30 PM EDT [facility] [address] [place] [address] Taryn Conteh PA-C [address] [place] [address] 02/20/2025 12:00 PM EDT Office Visit [facility] [address] [place] [phone] Monserrat Altamirano PA-C [address] [place] [phone] Scheduled Referrals Name Type Priority Associated Diagnoses Orde r Schedule ADULT/PEDS UROLOGY REFERRAL OP Referral Within 30 days (routine) Hematuria, unspecified type Chronic kidney disease, stage 3a (HCC) Urinary frequency Ordered: 09/02/2024 Health Maintenance Due Date Last Done Comments Zoster Vaccines (1 of 2) 1996 Adult Wellness Visit 2012 Diabetic Eye Exam 12/20/2021 12/20/2020, , 09/01/2017, Additional history exists DTap/Tdap Vaccines (2 - Td or Tdap) 03/08/2022 03/08/2012, 08/14/1998 COVID-19 Vaccine ( season) 2024 02/21/2022, 11/21/2020, 10/24/2020 Diabetic Foot Exam 03/05/2024 03/05/2023, 0 02/11/2022, 12/13/2020, Additional history exists B-12 10/21/2024 10/22/2023, 1007/2022, 02/04/2022, Additional history exists CKD HGB USE SMARTSET 62595 12/06/202412/06, 10/22/2023, 10/22/2023, Additional history exists Influenza Vaccine (FLU shot) (Season Ended) 2025 03/05/2023, 02/11/2022, 06/13/2020, Additional history exists GFR 02/09/2025 08/09/2024, 11/29, 12/07/2023, Additional history exists HbA1c 02/09/2025 08/09/2024, 09/30, 03/03/2023, Additional history exists Albumin/Creatinine Ratio 08/09/2025 025, 10/22/2023, 03/05/2023, Additional history exists CKD PHOS USE SMARTSET 45894 08/09/202507/30, 10/22/2023, 03/03/2023, Additional history exists Depression Monitoring 08/09/2025 08/09/2024 Colonoscopy Discontinued 04/19/2012, 04/01, 10/19/2006 RETIRED - COLONOSCOPY-EVERY 5 YRS AGES 18-100 Discontinued 04/20/2012, 04/19/2012, 04/19/2012, Additional history exists Pneumococcal Vaccine: 50+ Years Completed 08/11/2016, 08/03/2014 HPV (Gardasil) Vaccine Aged Out No lo nger eligible based on patient's age to complete this topic Hepatitis B Vaccine Aged Out No longe r eligible based on patient's age to complete this topic MENINGOCOCCAL (MENACTRA/MENVEO) Aged Out No longer eligible based on patient's age to complete this topic Meningitis B Vaccine (Bexsero/Trumemba) Aged Out No longer eligible based on patient's age to complete this topic documented as of this encounter Medical Devices Not on filedocumented as of this encounter Visit Diagnoses Diagnosis Chronic kidney disease, stage 3a (HCC)- Primary Type 2 diabetes mellitus with hemoglobin A1c goal of less than 8.0% (HCC) Screening for prostate cancer Special screening for malignant neoplasm of prostate Major depressive disorder, recurrent, in remission (HCC) Major depressive disorder, recurrent episode, in partial or unspecified remission Essential hypertension with goal blood pressure less than 140/90 Coronary artery disease involving [place] coronary artery of [place] heart without angina pectoris Urinary frequency Chronic low back pain without sciatica, unspecified back pain laterality Other specified hypotension Hematuria, unspecified type- Primary Chronic kidney disease, stage 3a (HCC) Urinary frequency documented in this encounter Care Teams Sampling Expert Relationship Specialty Start Date End Date Tahir Schrader DO [address] [place] [address] PCP - General Family Medicine 06/24/19 documented as of this encounter
--- OUTSIDE RECORDS SUMMARY | 2024-09-14 01:21 | External Medical Summary | Summary of Care ---
Author Name Unknown Organization [facility] Address [address] [facility] [place] [address] Phone [phone] Care Team Providers Care Plaster Foreman Name Role Phone Monserrat Altamirano PA-C Primary Care Provider [phone] Reason for Visit * Reason Onset Date Comments Other 08/19/2024 Encounter Details Date Type Department Care Team (Late st Contact Info) Description 08/19/2024 Telephone Family Practice [facility] [address] [place] [address] Tahir Schrader DO [address] [place] [address] Other Allergies Active Allergy Reactions Criticality Noted Date Comments Sina Inhibitors 11/14/2016 Codeine Edema face/lips/tongue High 12/13/2020 Lisinopril Cough 11/28/2016 Morphine And Codeine Edema face/lips/tongue High documented as of this encounter (statuses as of 09/09/2024) Medications NITROGLYCERIN 0.4 MG SL SUBLIndications: Angina pectoris (HCC) One tablet under tongue if needed for chest pain. May repeat 3 times. If chest pain continues, call [phone] Tab 11 0 Active Losartan Potassium 100 MG Oral Tablet (Cozaar)Indicati ons:Essential hypertension with goal blood pressure less than [...] EVERY DAY 90 Tablet 2 4 Active Venlafaxine HCl ER 75 MG Oral Capsule Extended Release 24 Hour (Effexor XR)Indications:M ajor depressive disorder, recurrent, in remission (HCC) TAKE 3 CAPSULES EVERY DAY 270 Capsule 3 4 Active Metoprolol Succinate ER 50 MG Oral Tablet Extended Release 24 Hour (toPROL XL)Indications:H TN, goal below 130/80 TAKE 1 TABLET EVERY MORNING 90 Tablet 3 4 Active Mirtazapine 45 MG Oral Tablet (Remeron)Indicat ions:Major depressive disorder, recurrent, in remission (HCC) TAKE 1 TABLET AT BEDTIME 90 Tablet 2 5 Active Tamsulosin HCl 0.4 MG Oral Capsule (Flomax)Indicati ons:Chronic kidney disease, unspecified CKD stage TAKE 1 CAPSULE EVERY MORNING 90 Capsule 2 5 Active metFORMIN HCl 500 MG Oral Tablet (Glucophage)Blanca cations:Impaired fasting glucose TAKE 1 TABLET TWICE DAILY WITH MORNING AND EVENING MEALS 180 Tablet 3 4 09/09/19 25 Discontinu ed(Linda rred) documented as of this encounter (statuses as of 09/09/2024) Active Problems Problem Noted Date Diagnosed Date [...] reflux 10/02/2007 Coronary artery disease invo lving [place] coronary artery of [place] heart without angina pectoris Assessment & Plan (08/09/2024 2:44 PM EDT): On statin documented as of this encounter (statuses as of 09/09/2024) Resolved Problems Problem Noted Date Diagnosed Date Resolved Date Major depressive disorder, r ecurrent, in remission 02/15/2018 03/15/2019 Type 2 diabetes mellitus wit h hemoglobin A1c goal of less than 7.5% 11/14/2016 12/12/2019 Nephrolithiasis 11/12/2016 03/01/2019 Overview (11/12/2016): On CT 10/2016 ADVANCE DIRECTIVE INFORMATION 12/14/2006 04/04/2024 Overview (12/14/2006): Information offered-patient declined. documented as of this encounter (statuses as of 09/09/2024) Immunizations Name Administration Dates Next Due COVID-19 mRNA, LNP-s, No Pre serve, 2-Dose Series ([employer]) 11/21/2020,10/24/2020 Covid-19, Mrna, Lnp-s, Pf, B ivalent, 30 Mcg, IM, 12 yrs and above (Pfizer) 02/21/2022 Diptheria/Tetanus (Adult) 08/14/1998 Pneumococcal Conjugate Vacc, 13 Valent (Prevnar) 08/03/2014 [...] 08/09/2024 Does the household have a re gular source of income? (Household - for ages [...] encounter Miscellaneous Notes * Telephone Encounter - Gemini Holder LPN - 09/08/2024 6:57 PM EDT Spoke with and made him aware of message below. Pt would like his "sugar med" to be sent to his mail order pharmacy. Also, he is checking with Urology at [facility] to see if they can get him in sooner than his appointment in [place] in October. * Telephone Encounter - Monserrat Altamirano PA-C - 08/30/2024 10:13 AM EDT Urine orders are in for him - suggest repeat in 3-4 weeks. Where does he want med for sugar sent? The idea is to try the med, see if he urinates less Urology could be [place], [place] or [place]- whatever he prefers. Monserrat Altamirano PA-C Inboxologist Note: * Telephone Encounter - Billie Reyes TECH - 08/24/2024 3:58 PM EDT Pt calling back to make sure that Monserrat Geraldnettie received the envelope from pt. Advised pt that she did receive it and advised pt that she would like him to start a medication to control his sugar, come in for a repeat urine, and see a Urologist. Patient is agreeable to everything that Monserrat would like him to do. Pt requesting a call back so he can further discuss all of these things and to make the urology appt as he is uncertain as to where the appt would be. Pt can be reached at [phone]. Thank you, Billie Reyes [facility] 08/24/2024, 4:01 PM * Telephone Encounter - Monserrat Altamirano PA-C - 08/23/2024 11:50 AM EDT Please let him know: I am thrilled with blood pressure His labs indicate that his sugar really needs more medication to be able to control what is going on. Is he ok with me adding a medication? (Probably Januvia or Jardiance - which ever his insurance covers) the high sugars could be causing bladder irritation and frequency of urination OR more could be going on. Can he come do a repeat urine - I would like to see if we can catch the black flecks? I think he should have a kidney / bladder scan and consider seeing urology. Monserrat Altamirano PA-C Inboxologist Note: * Telephone Encounter - Milvia Dugan OSA - 08/19/2024 1:45 PM EDT The pt brought in an envelope toady for monserrat. He said that it had some health information about him in it. He said he does not need the papers back they are just for monserrat. I put it in the providers mailbox documented in this encounter Plan of Treatment Upcoming Encounters Date Type Department Care Team (Late st Contact Info) Description 11/16/2024 2:30 PM EDT Office Visit [facility] [address] [place] [address] Taryn Conteh PA-C [address] [place] [address] 02/20/2025 12:00 PM EDT Office Visit [facility] [address] [place] [phone] Monserrat Altamirano PA-C [address] [place] [address] Health Maintenance Due Date Last Done Comments [...] Additional history exists CKD HGB USE SMARTSET 55578 12/06/202412/06, 10/22/2023, 10/22/2023, Additional history exists Influenza Vaccine (FLU shot) (Season Ended) 2025 03/05/2023, 02/11/2022, 06/13/2020, Additional history exists GFR 02/09/2025 08/09/2024, 11/29, 12/07/2023, Additional history exists HbA1c 02/09/2025 08/09/2024, 09/30, 03/03/2023, Additional history exists Albumin/Creatinine Ratio 08/09/2025 025, 10/22/2023, 03/05/2023, Additional history exists CKD PHOS USE SMARTSET 76679 08/09/202507/30, 10/22/2023, 03/03/2023, Additional history exists Depression [...] less than 140/90 Coronary artery disease involving [place] coronary artery of [place] heart without angina pectoris Urinary frequency Chronic low back pain without sciatica, unspecified back pain laterality Other specified hypotension Hematuria, unspecified type- Primary Type 2 diabetes mellitus with hemoglobin A1c goal of less than 8.0% (HCC) Chronic kidney disease, stage 3a (HCC) documented in this encounter Care Teams Plaster Foreman Relationship Specialty Start Date End Date Monserrat Altamirano PA-C [address] [place] [address] PCP - General Physician Defense Analyst 09/07/24 documented as of this encounter
--- OUTSIDE RECORDS SUMMARY | 2024-09-14 01:21 | External Medical Summary | Summary of Care ---
Author Name Unknown Organization [facility] Address [address] [facility] [place] [address] Phone [phone] Care Team Providers Care Billet Recorder Name Role Phone Monserrat Altamirano PA-C Primary Care Provider [phone] Reason for Visit * Reason Onset Date Comments Other 08/19/2024 Encounter Details Date Type Department Care Team (Late st Contact Info) Description 08/19/2024 Telephone Family Practice [facility] [address] [place] [address] Tahir Schrader DO [address] [place] [address] Other Allergies Active Allergy Reactions Criticality Noted Date Comments Sina Inhibitors 11/14/2016 Codeine Edema face/lips/tongue High 12/13/2020 Lisinopril Cough 11/28/2016 Morphine And Codeine Edema face/lips/tongue High documented as of this encounter (statuses as of 09/09/2024) Medications NITROGLYCERIN 0.4 MG SL SUBLIndications: Angina pectoris (HCC) One tablet under tongue if needed for chest pain. May repeat 3 times. If chest pain continues, call [phone] Tab 11 0 Active Losartan Potassium 100 [...] EVERY MORNING 90 Capsule 2 5 Active SITagliptin Phosphate 50 MG Oral Tablet (Januvia)Indicat ions:Type 2 diabetes mellitus with hemoglobin A1c goal of less than 8.0% (HCC) Take 1 Tablet by mouth in the morning. 90 Tablet 1 5 Active metFORMIN HCl 500 MG Oral Tablet (Glucophage)Blanca cations:Impaired fasting glucose TAKE 1 TABLET TWICE DAILY WITH MORNING AND EVENING MEALS 180 Tablet 3 4 09/09/19 25 Discontinu ed(Transfe rred) documented as of this encounter (statuses [...] reflux 10/02/2007 Coronary artery disease invo lving [place] coronary artery of [place] heart without angina pectoris Assessment & Plan [...] mRNA, LNP-s, No Pre serve, 2-Dose Series ([employer]) 11/21/2020,10/24/2020 Covid-19, Mrna, Lnp-s, Pf, B ivalent, 30 Mcg, IM, 12 yrs and above ([employer]) 02/21/2022 Diptheria/Tetanus (Adult) 08/14/1998 Pneumococcal Conjugate Vacc, [...] as of this encounter Miscellaneous Notes * Addendum Note - Monserrat Altamirano PA-C - 09/09/2024 7:56 AM EDTAddended by: MONSERRAT ALTAMIRANO on: 09/09/2024 07:56 AM Modules accepted: Orders * Telephone Encounter - Gemini Holder LPN - 09/08/2024 6:57 PM EDT Spoke with and made him aware of message below. Pt would like his "sugar med" to be sent to his mail order pharmacy. Also, he is checking with Urology at [facility] to see if they can get him in sooner than his appointment in [place] in October. * Telephone Encounter - Monserrat Altamirano PA-C - 08/30/2024 10:13 AM EDT Urine orders are in for him - suggest repeat in 3-4 weeks. Where does he want med for sugar sent? The idea is to try the med, see if he urinates less Urology could be [facility], [place] or [place]- whatever he prefers. Monserrat Altamirano PA-C Inboxologist Note: * Telephone Encounter - Billie Reyes TECH - 08/24/2024 3:58 PM EDT Pt calling back to make sure that Monserrat Altamirano received the envelope from pt. Advised pt [...] would be. Pt can be reached at [phone]. Thank you, Billie Reyes Wireless Development Manager [facility]) 08/24/2024, [...] Description 11/16/2024 2:30 PM EDT Office Visit Urology [facility] [address] [place] [address] Taryn Conteh PA-C [address] [place] [address] 02/20/2025 12:00 PM EDT Office Visit [facility] [place] [address] [place] [phone] Monserrat Altamirano PA-C [address] [place] [address] Health Maintenance Due Date Last Done Comments Zoster Vaccines (1 of 2) 1996 Adult Wellness Visit 2012 Diabetic Eye Exam 12/20/2021 12/20/2020, , 09/01/2017, Additional history exists DTap/Tdap Vaccines (2 - Td or Tdap) 03/08/2022 03/08/2012, 08/14/1998 COVID-19 Vaccine ( season) 2024 02/21/2022, 11/21/2020, 10/24/2020 Diabetic Foot Exam 03/05/2024 03/05/2023, 0 02/11/2022, 12/13/2020, Additional history exists B-12 10/21/2024 10/22/2023, 10/0 07/2022, 02/04/2022, Additional history exists CKD HGB USE SMARTSET 21303 12/06/202412/06, 10/22/2023, 10/22/2023, Additional history exists Influenza Vaccine (FLU shot) (Season Ended) 2025 03/05/2023, 02/11/2022, 06/13/2020, Additional history exists GFR 02/09/2025 08/09/2024, 11/29, 12/07/2023, Additional history exists HbA1c 02/09/2025 08/09/2024, 09/30, 03/03/2023, Additional history exists Albumin/Creatinine Ratio 08/09/2025 025, 10/22/2023, 03/05/2023, Additional history exists CKD PHOS USE SMARTSET 14215 08/09/202507/30, 10/22/2023, 03/03/2023, Additional history exists Depression [...] less than 140/90 Coronary artery disease involving [place] coronary artery of [place] heart without angina pectoris Urinary frequency Chronic low back pain without sciatica, unspecified back pain laterality Other specified hypotension Hematuria, unspecified type- Primary Type 2 diabetes mellitus with hemoglobin A1c goal of less than 8.0% (HCC) Chronic kidney disease, stage 3a (HCC) documented in this encounter Care Teams Billet Recorder Relationship Specialty Start Date End Date Monserrat Altamirano PA-C [address] [place] [address] PCP - General Physician Manager Report 09/07/24 documented as of this encounter
--- OUTSIDE RECORDS SUMMARY | 2024-09-14 01:21 | External Medical Summary | Summary of Care ---
Author Name Unknown Organization [facility] Address [address] [facility] [place] [address] Phone [phone] Care Team Providers Care Library Assistant Name Role Phone Monserrat Altamirano PA-C Primary Care Provider [phone] Encounter Details Date Type Department Care Team (Late st Contact Info) Description [facility] [address] [place] [phone] Monserrat Altamirano PA-C [address] [facility] [place] [address] Allergies Active Allergy Reactions Criticality Noted Date Comments Sina Inhibitors 11/14/2016 Codeine Edema face/lips/tongue High 12/13/2020 Lisinopril Cough 11/28/2016 Morphine And Codeine Edema face/lips/tongue High documented as of this encounter (statuses as of 09/07/2024) Medications NITROGLYCERIN 0.4 MG SL SUBLIndications:A ngina pectoris (HCC) One tablet under tongue if needed for chest pain. May repeat 3 times. If chest pain continues, call [phone] Tab 11 0 Active Losartan Potassium 100 [...] EVERY MORNING 90 Capsule 2 5 Active Amoxicillin 500 MG Oral Capsule (Amoxil)Indicatio ns:Acute cystitis with hematuria Take 1 Capsule by mouth in the morning and 1 Capsule before bedtime. Do all this for 10 days. 20 Capsule 5 09/17/19 25 Active documented as of this encounter (statuses as of 09/07/2024) Active Problems Problem Noted Date Diagnosed Date [...] reflux 10/02/2007 Coronary artery disease invo lving [place] coronary artery of [place] heart without angina pectoris Assessment & Plan (08/09/2024 2:44 PM EDT): On statin documented as of this encounter (statuses as of 09/07/2024) Resolved Problems Problem Noted Date Diagnosed Date Resolved Date Major depressive disorder, r ecurrent, in remission 02/15/2018 03/15/2019 Type 2 diabetes mellitus wit h hemoglobin A1c goal of less than 7.5% 11/14/2016 12/12/2019 Nephrolithiasis 11/12/2016 03/01/2019 Overview (11/12/2016): On CT 10/2016 ADVANCE DIRECTIVE INFORMATION 12/14/2006 04/04/2024 Overview (12/14/2006): Information offered-patient declined. documented as of this encounter (statuses as of 09/07/2024) Immunizations Name Administration Dates Next Due COVID-19 mRNA, LNP-s, No Pre serve, 2-Dose Series ([employer]) 11/21/2020,10/24/2020 Covid-19, Mrna, Lnp-s, Pf, B ivalent, [...] Telephone Encounter - Gemini Holder LPN - 09/07/2024 3:08 PM EDT Spoke with pt and made aware. Pt stated understanding * Telephone Encounter - Monserrat Altamirano PA-C - 09/06/2024 12:13 PM EDT Urine did grow bacteria I have sent an antibiotic in that I would like him to take and then report back about hos his urineissues are doing Acute cystitis with hematuria (Primary) - Amoxicillin 500 MG Oral Capsule (Amoxil); Take 1 Capsule by mouth in the morning and 1 Capsule before bedtime. Do all this for 10 days. Monserrat Altamirano PA-C 09/06/2024 12:14 PM documented in this encounter Plan of Treatment Upcoming Encounters Date Type Department Care Team (Late st Contact Info) Description 11/16/2024 2:30 PM EDT Office Visit Urology [facility] [address] [place] [address] Taryn Conteh PA-C [address] [place] [address] 02/20/2025 12:00 PM EDT [facility] [place] [address] [place] [phone] Monserrat Altamirano PA-C [address] [place] [address] Health Maintenance Due Date Last Done Comments [...] Additional history exists CKD HGB USE SMARTSET 63762 12/06/202412/06, 10/22/2023, 10/22/2023, Additional history exists Influenza Vaccine (FLU shot) (Season Ended) 2025 03/05/2023, 02/11/2022, 06/13/2020, Additional history exists GFR 02/09/2025 08/09/2024, 11/29, 12/07/2023, Additional history exists HbA1c 02/09/2025 08/09/2024, 09/30, 03/03/2023, Additional history exists Albumin/Creatinine Ratio 08/09/2025 025, 10/22/2023, 03/05/2023, Additional history exists CKD PHOS USE SMARTSET 48300 08/09/202507/30, 10/22/2023, 03/03/2023, Additional history exists Depression [...] less than 140/90 Coronary artery disease involving [place] coronary artery of [place] heart without angina pectoris Urinary frequency Chronic low back pain without sciatica, unspecified back pain laterality Other specified hypotension Acute cystitis with hematuria- Primary Acute cystitis documented in this encounter Care Teams Library Assistant Relationship Specialty Start Date End Date Monserrat Altamirano PA-C [address] [place] [address] PCP - General Physician Technical Publications Writer 09/07/24 documented as of this encounter
--- OUTSIDE RECORDS SUMMARY | 2024-09-14 01:21 | External Medical Summary | Summary of Care ---
Author Name Unknown Organization [facility] Address [address] [facility] [address] Phone [phone] Care Team Providers Care Manager Financial Systems Name Role Phone Tahir Schrader DO Primary Care Provider Reason for Visit * Reason Comments Outpatient Testing Encounter Details Date Type Department Care Team (Late st Contact Info) Description 09/02/2024 1:20 PM EDT Laboratory Laboratory, [place] [address] [facility] [address] [place] [phone] [place], Laboratory [address] [place] [phone] Hematuria, unspecified type Allergies Active Allergy Reactions Criticality Noted Date Comments Sina Inhibitors 11/14/2016 Codeine Edema face/lips/tongue High 12/13/2020 Lisinopril Cough 11/28/2016 Morphine And Codeine Edema face/lips/tongue High documented as of this encounter (statuses as of 09/02/2024) Medications NITROGLYCERIN 0.4 MG SL SUBLIndications:A ngina pectoris (HCC) One tablet under tongue if needed for chest pain. May repeat 3 times. If chest pain continues, call [phone] Tab 11 0 Active Losartan Potassium 100 [...] as of this encounter (statuses as of 09/02/2024) Active Problems Problem Noted Date Diagnosed Date [...] reflux 10/02/2007 Coronary artery disease invo lving [place] coronary artery of [place] heart without angina pectoris Assessment & Plan (08/09/2024 2:44 PM EDT): On statin documented as of this encounter (statuses as of 09/02/2024) Resolved Problems Problem Noted Date Diagnosed Date Resolved Date Major depressive disorder, r ecurrent, in remission 02/15/2018 03/15/2019 Type 2 diabetes mellitus wit h hemoglobin A1c goal of less than 7.5% 11/14/2016 12/12/2019 Nephrolithiasis 11/12/2016 03/01/2019 Overview (11/12/2016): On CT 10/2016 ADVANCE DIRECTIVE INFORMATION 12/14/2006 04/04/2024 Overview (12/14/2006): Information offered-patient declined. documented as of this encounter (statuses as of 09/02/2024) Immunizations Name Administration Dates Next Due COVID-19 mRNA, LNP-s, No Pre serve, 2-Dose Series ([employer]) 11/21/2020,10/24/2020 Covid-19, Mrna, Lnp-s, Pf, B ivalent, [...] on file documented as of this encounter Plan of Treatment Upcoming Encounters Date Type Department Care Team (Late st Contact Info) Description 11/16/2024 2:30 PM EDT Office Visit Urology [facility] [address] [place] [address] Taryn Conteh PA-C [address] [place] [phone] 02/20/2025 12:00 PM EDT Office Visit [facility] Riccard[address] [place] [address] [phone] Monserrat Altamirano PA-C [address] [place] [address] Pending Results Name Type Priority Associated Diagnoses Date /Time URINALYSIS, REFLEX TO CULTURE (NOT FOR NEUTROPENIC PATIENTS) Lab Routine Hematuria, unspecified type 09/02/2024 1:21 PM EDT URINALYSIS, REFLEX TO CULTURE Lab Routine Hematuria, unspecified type 09/02/2024 1:21 PM EDT Health Maintenance Due Date Last Done Comments [...] Additional history exists CKD HGB USE SMARTSET 50514 12/06/202412/06, 10/22/2023, 10/22/2023, Additional history exists Influenza Vaccine (FLU shot) (Season Ended) 2025 03/05/2023, 02/11/2022, 06/13/2020, Additional history exists GFR 02/09/2025 08/09/2024, 11/29, 12/07/2023, Additional history exists HbA1c 02/09/2025 08/09/2024, 09/30, 03/03/2023, Additional history exists Albumin/Creatinine Ratio 08/09/2025 025, 10/22/2023, 03/05/2023, Additional history exists CKD PHOS USE SMARTSET 96815 08/09/202507/30, 10/22/2023, 03/03/2023, Additional history exists Depression [...] Not on filedocumented as of this encounter Procedures Procedure Name Priority Date/Time Associated Diagnosis Comments URINALYSIS, REFLEX TO CULTURE (CUP ONLY) Routine 09/02/2024 1:21 PM EDT Hematuria, unspecified type documented in this encounter Results * URINALYSIS, REFLEX TO CULTURE (CUP ONLY) (09/02/2024 1:21 PM EDT) Urinalysis, Reflex to Culture Specimen Specimen collected and received 09/02/2024 3:01 PM EDT LAB[facility]ATORY [facility] Urine Urine specimen obtained by clean catch procedure / Unknown Non-blood Collection / Unknown 09/02/2024 1:21 PM EDT 09/02/2024 1:21 PM EDT us Monserrat Altamirano PA-C LAB URINE ORDERABLES Court l Result LAB[facility]ATORY [facility] [address] [place] [address] documented in this encounter Visit Diagnoses Diagnosis Chronic kidney [...] less than 140/90 Coronary artery disease involving [place] coronary artery of [place] heart without angina pectoris Urinary frequency Chronic low back pain without sciatica, unspecified back pain laterality Other specified hypotension Hematuria, unspecified type documented in this encounter Care Teams Manager Financial Systems Relationship Specialty Start Date End Date Tahir Schrader DO [address] [facility] [place] [address] PCP - General Family Medicine 06/24/19 documented as of this encounter
--- OUTSIDE RECORDS SUMMARY | 2024-09-14 01:22 | External Medical Summary ---
Author Name Unknown Address Unknown Organization K01:LABORATORY [facility] - [address] [facility] [place] [address] Laboratory Report Ordering Provider Test Date Status GIORGI MENDOZA 09/02/2024 13:21:12 Final Observation Date Value Abnormality Reference (Units ) Status Color of Urine by Auto 09/02/2024 13:21:12 Yellow Colorless, Light Yellow, Yellow, Dark Yellow Final Clarity, Urine 09/02/2024 13:21:12 Slightly Cloudy Abnormal Clear Final Glucose [Mass/volume] in Urine by Automated test strip 09/02/2024 13:21:12 >=1000 Abnormal Negative (mg/dL) Final Bilirubin.total [Presence] in Urine by Automated test strip 09/02/2024 13:21:12 Negative Negative Final Ketones [Mass/volume] in Urine by Automated test strip 09/02/2024 13:21:12 Negative Negative (mg/dL) Final Specific gravity, Urine 09/02/2024 13:21:12 1.026 1.003-1.030 Final Hemoglobin [Presence] in Urine by Automated test strip 09/02/2024 13:21:12 Large Abnormal Negative Final pH, Urine 09/02/2024 13:21:12 6.5 5.0-7.5 (Units) Final Protein [Mass/volume] in Urine by Automated test strip 09/02/2024 13:21:12 30 Abnormal Negative (mg/dL) Final Urobilinogen [Mass/volume] in Urine by Automated test strip 09/02/2024 13:21:12 Normal Normal (mg/dL) Final Nitrite [Presence] in Urine by Automated test strip 09/02/2024 13:21:12 Negative Negative Final Leukocyte esterase [Presence] in Urine by Automated test strip 09/02/2024 13:21:12 Small Abnormal Negative Final RBC, Urine 09/02/2024 13:21:12 50+ Abnormal 0-2 (/HPF) Final WBC, Urine 09/02/2024 13:21:12 20-29 Abnormal 0-2 (/HPF) Final Bacteria [#/area] in Urine sediment by Microscopy high power field 09/02/2024 13:21:12 101-150 Abnormal 0-25 (/HPF) Final CULTURE, URINE - [facility] 09/02/2024 13:21:12 Final Quantitative urine culture t o be performed Performing Location LABORATORY [facility] - [address] [facility] [address]
--- OUTSIDE RECORDS SUMMARY | 2024-09-14 01:22 | External Medical Summary | Summary of Care ---
Author Name Unknown Organization [facility] Address [address] [facility] [place] [address] Phone [phone] Care Team Providers Care Night Shift Manager Name Role Phone Tahir Schrader DO Primary Care Provider Reason for Visit * Reason Onset Date Comments Other 08/24/2024 Encounter Details Date Type Department Care Team (Late st Contact Info) Description [facility] [address] [place] [phone] Monserrat Altamirano PA-C [address] [place] [address] Other Allergies Active Allergy Reactions Criticality Noted Date Comments Sina Inhibitors 11/14/2016 Codeine Edema face/lips/tongue High 12/13/2020 Lisinopril Cough 11/28/2016 Morphine And Codeine Edema face/lips/tongue High documented as of this encounter (statuses as of 08/24/2024) Medications NITROGLYCERIN 0.4 MG SL SUBLIndications:A ngina pectoris (HCC) One tablet under tongue if needed for chest pain. May repeat 3 times. If chest pain continues, call [phone] Tab 11 0 Active Losartan Potassium 100 [...] as of this encounter (statuses as of 08/24/2024) Active Problems Problem Noted Date Diagnosed Date [...] reflux 10/02/2007 Coronary artery disease invo lving [place] coronary artery of [place] heart without angina pectoris Assessment & Plan (08/09/2024 2:44 PM EDT): On statin documented as of this encounter (statuses as of 08/24/2024) Resolved Problems Problem Noted Date Diagnosed Date Resolved Date Major depressive disorder, r ecurrent, in remission 02/15/2018 03/15/2019 Type 2 diabetes mellitus wit h hemoglobin A1c goal of less than 7.5% 11/14/2016 12/12/2019 Nephrolithiasis 11/12/2016 03/01/2019 Overview (11/12/2016): On CT 10/2016 ADVANCE DIRECTIVE INFORMATION 12/14/2006 04/04/2024 Overview (12/14/2006): Information offered-patient declined. documented as of this encounter (statuses as of 08/24/2024) Immunizations Name Administration Dates Next Due COVID-19 mRNA, LNP-s, No Pre serve, 2-Dose Series ([employer]) 11/21/2020,10/24/2020 Covid-19, Mrna, Lnp-s, Pf, B ivalent, [...] encounter Miscellaneous Notes * Telephone Encounter - Billie Reyes TECH - 08/24/2024 3:57 PM EDT Encounter created in error Thank you, Billie Reyes Embedded Software Developer [facility] 08/24/2024, 3:57 PM documented in this encounter Plan of Treatment Upcoming Encounters Date Type Department Care Team (Late st Contact Info) Description 02/20/2025 12:00 PM EDT Office Visit [facility] Riccardo Castillo [address] [place] [address] [phone] Monserrat Altamirano PA-C [address] [place] [address] Health Maintenance Due Date Last Done Comments Zoster Vaccines (1 of 2) 1996 Adult Wellness Visit 2012 Diabetic Eye Exam 12/20/2021 12/20/2020, , 09/01/2017, Additional history exists DTap/Tdap Vaccines (2 - Td or Tdap) 03/08/2022 03/08/2012, 08/14/1998 COVID-19 Vaccine ( - season) 2024 02/21/2022, 11/21/2020, 10/24/2020 Influenza Vaccine (FLU shot) (#1) 2024 03/05/2023, 02/11/2022, 06/13/2020, Additional history exists Diabetic Foot Exam 03/05/2024 03/05/2023, 0 02/11/2022, 12/13/2020, Additional history exists B-12 10/21/2024 10/22/2023, 10/0 07/2022, 02/04/2022, Additional history exists CKD HGB USE SMARTSET 91628 12/06/202412/06, 10/22/2023, 10/22/2023, Additional history exists GFR 02/09/2025 08/09/2024, 11/29, 12/07/2023, Additional history exists HbA1c 02/09/2025 08/09/2024, 09/30, 03/03/2023, Additional history exists Albumin/Creatinine Ratio 08/09/2025 025, 10/22/2023, 03/05/2023, Additional history exists CKD PHOS USE SMARTSET 91673 08/09/202507/30, 10/22/2023, 03/03/2023, Additional history exists Depression [...] Not on filedocumented as of this encounter Care Teams Night Shift Manager Relationship Specialty Start Date End Date Tahir Schrader DO [address] [place] [address] PCP - General Family Medicine 06/24/19 documented as of this encounter
--- OUTSIDE RECORDS SUMMARY | 2024-09-14 01:22 | External Medical Summary ---
Author Name Unknown Address Unknown Organization K01:[facility] [place] [address] [facility] [place] [id number] Laboratory Report Ordering Provider Test Date Status GIORGI MENDOZA 09/02/2024 13:21:12 Final <10,000 colonies/ml mixed no rmal ama Observation Date Value Abnormality Reference (Units) Status Bacteria identified in Specimen by Culture 09/02/2024 13:21:12 [id number]^BETA STREPTOCOCCUS GROUP B Abnormal Final 10,000 to 100,000 colonies/m L Beta Streptococcus group B Bacteria identified in Speci men by Culture 09/02/2024 13:21:12 [id number]^YEAST Abnormal Final <10,000 colonies/mL Yeast Performing Location LAB[facility] - [address] [facility] [address] Ordering Provider Test Date Status GIORGI MENDOZA 09/02/2024 13:21:12 Final Observation Date Value Abnormality Reference (Units ) Status Penicillin susceptibility 09/02/2024 13:21:12 0.12 Susceptible Final Vancomycinsusceptibility 09/02/2024 13:21:12 0.5 Susceptible Final Test: Culture, Urine, Quanti tative
Specimen Source: Urine, Clean Catch
Specimen Type: Urine
Specimen Date: 09/02/2024 1321
Result Date: 09/05/2024 0756
Result Status: Final result
Abnormal: Yes
Resulting Lab: [facility]
[address]
[place] [address]

CULTURE

10,000 to 100,000 colonies/mL Beta Streptococcus group B (Abnormal)

<10,000 colonies/mL Yeast (Abnormal)

<10,000 colonies/ml mixed normal ama

SUSCEPTIBILITY

Beta
Streptococcus
group B
METHOD MICROBROTH
DILUTIONS

PENICILLIN G 0.12 Susceptible
VANCOMYCIN 0.5 Susceptible

null Performing Location LAB[facility] - [address] [facility] [address]
--- OUTSIDE RECORDS SUMMARY | 2024-09-14 01:22 | External Medical Summary | Summary of Care ---
Author Name Unknown Organization [facility] Address [address] [facility] [address] Phone [phone] Care Team Providers Care Carriage Operator Name Role Phone Tahir Schrader DO Primary Care Provider Encounter Details Date Type Department Care Team (Late st Contact Info) Description [facility] [address] [phone] Monserrat Altamirano PA-C [address] [place] [id number] Allergies Active Allergy Reactions Criticality Noted Date Comments Sina Inhibitors 11/14/2016 Codeine Edema face/lips/tongue High 12/13/2020 Lisinopril Cough 11/28/2016 Morphine And Codeine Edema face/lips/tongue High documented as of this encounter (statuses as of 08/29/2024) Medications NITROGLYCERIN 0.4 MG SL SUBLIndications:A ngina pectoris (HCC) One tablet under tongue if needed for chest pain. May repeat 3 times. If chest pain continues, call [phone] Tab 11 0 Active Losartan Potassium 100 [...] as of this encounter (statuses as of 08/29/2024) Active Problems Problem Noted Date Diagnosed Date [...] reflux 10/02/2007 Coronary artery disease invo lving [place] coronary artery of [place] heart without angina pectoris Assessment & Plan (08/09/2024 2:44 PM EDT): On statin documented as of this encounter (statuses as of 08/29/2024) Resolved Problems Problem Noted Date Diagnosed Date Resolved Date Major depressive disorder, r ecurrent, in remission 02/15/2018 03/15/2019 Type 2 diabetes mellitus wit h hemoglobin A1c goal of less than 7.5% 11/14/2016 12/12/2019 Nephrolithiasis 11/12/2016 03/01/2019 Overview (11/12/2016): On CT 10/2016 ADVANCE DIRECTIVE INFORMATION 12/14/2006 04/04/2024 Overview (12/14/2006): Information offered-patient declined. 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 Not on file Not on file Not on file documented as of this encounter Miscellaneous Notes * Telephone Encounter - Tawana Granados LPN - 08/29/2024 12:21 PM EDT Addressed in a different encounter * Telephone Encounter - Monserrat Altamirano PA-C - 08/19/2024 11:13 AM EDT Labs are back Kidney has slowed down a bit Sugar is up significantly Results for orders placed or performed in visit on 08/09/24 HEMOGLOBIN A1C Result Value Ref Range Hemoglobin A1C 12.6 (H) 4.0 - 5.6 % Estimated Average Glucose 315 (H) <126 mg/dL RENAL FUNCTION PANEL Result Value Ref Range BUN 16 6 - 20 mg/dL CREATININE 1.4 (H) 0.6 - 1.2 mg/dL EGFR 50 (L) >=60 mL/min SODIUM 134 (L) 135 - 146 mmol/L POTASSIUM 4.5 3.5 - 5.1 mmol/L CHLORIDE 100 98 - 107 mmol/L CO2 23 22 - 32 mmol/L ANION GAP 11 7 - 15 mmol/L GLUCOSE 477 (H) 70 - 120 mg/dL CALCIUM 9.7 8.4 - 10.2 mg/dL Albumin 4.2 3.8 - 5.0 g/dL Phosphorus 2.5 2.5 - 4.8 mg/dL ALBUMIN / CREATININE RATIO, URINE Result Value Ref Range Albumin, Random Urine 44.00 mg/dL Creatinine, Random Urine 69 mg/dL Albumin / Creatinine Ratio, Urine 638 (H) <30 mg/g Creat PSA Result Value Ref Range PSA 1.00 <4.10 ng/mL Hemoglobin AIC Results: Lab Results Component Value Date/Time HEMOGLOBIN A1C - [facility] 12.6 (H) 08/09/2024 03:10 PM HEMOGLOBIN A1C - [facility] 12.7 (H) 10/22/2023 01:25 PM HEMOGLOBIN A1C - [facility] 9.6 (H) 03/03/2023 03:03 PM HEMOGLOBIN A1C - [facility] 6.7 (H) 06/13/2020 03:47 PM HEMOGLOBIN A1C - [facility] 6.5 (H) 12/12/2019 02:44 PM HEMOGLOBIN A1C - [facility] 6.0 (H) 06/03/2019 12:21 PM This is not a safe A1c That is likely cause of kidney slowing down and the swelling in legs Is he willing to see my pharmacist to 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 Monserrat Altamirano PA-C Inboxologist Note: documented in this encounter Plan of Treatment Upcoming Encounters Date Type Department Care Team (Late st Contact Info) Description 02/20/2025 12:00 PM EDT Office Visit [facility] [place] Castillo [address] [phone] Monserrat Altamirano PA-C [address] [place] [address] Health Maintenance Due Date Last Done Comments Zoster Vaccines (1 of 2) 1996 Adult Wellness Visit 2012 Diabetic Eye Exam 12/20/2021 12/20/2020, , 09/01/2017, Additional history exists DTap/Tdap Vaccines (2 - Td or Tdap) 03/08/2022 03/08/2012, 08/14/1998 COVID-19 Vaccine ( season) 2024 02/21/2022, 11/21/2020, 10/24/2020 Influenza Vaccine (FLU shot) (#1) 2024 03/05/2023, 02/11/2022, 06/13/2020, Additional history exists Diabetic Foot Exam 03/05/2024 03/05/2023, 0 02/11/2022, 12/13/2020, Additional history exists B-12 10/21/2024 10/22/2023, 10/07/2022, 02/04/2022, Additional history exists CKD HGB USE SMARTSET 09974 12/06/202412/06, 10/22/2023, 10/22/2023, Additional history exists GFR 02/09/2025 08/09/2024, 11/29, 12/07/2023, Additional history exists HbA1c 02/09/2025 08/09/2024, 09/30, 03/03/2023, Additional history exists Albumin/Creatinine Ratio 08/09/2025 025, 10/22/2023, 03/05/2023, Additional history exists CKD PHOS USE SMARTSET 87840 08/09/202507/30, 10/22/2023, 03/03/2023, Additional history exists Depression [...] filedocumented as of this encounter Care Teams Carriage Operator Relationship Specialty Start Date End Date Tahir Schrader DO [address] [place] [address] PCP - General Family Medicine 06/24/19 documented as of this encounter
--- OUTSIDE RECORDS SUMMARY | 2024-09-14 01:22 | External Medical Summary | Summary of Care ---
Author Name Unknown Organization [facility] Address [address] [facility] [address] Phone [phone] Care Team Providers Care Mechanical Engineering Advisor Name Role Phone Tahir Schrader DO Primary Care Provider Encounter Details Date Type Department Care Team (Late st Contact Info) Description 08/26/2024 Orders Only PATIENT PORTAL DO NOT DELETE THIS DEPT USED BY [place] [id number] Allergies Active Allergy Reactions Criticality Noted Date Comments Sina Inhibitors 11/14/2016 Codeine Edema face/lips/tongue High 12/13/2020 Lisinopril Cough 11/28/2016 Morphine And Codeine Edema face/lips/tongue High documented as of this encounter (statuses as of 08/26/2024) Medications NITROGLYCERIN 0.4 MG SL SUBLIndications:A ngina pectoris (HCC) One tablet under tongue if needed for chest pain. May repeat 3 times. If chest pain continues, call [phone] Tab 11 0 Active Losartan Potassium 100 [...] as of this encounter (statuses as of 08/26/2024) Active Problems Problem Noted Date Diagnosed Date [...] reflux 10/02/2007 Coronary artery disease invo lving [place] coronary artery of [place] heart without angina pectoris Assessment & Plan (08/09/2024 2:44 PM EDT): On statin documented as of this encounter (statuses as of 08/26/2024) Resolved Problems Problem Noted Date Diagnosed Date Resolved Date Major depressive disorder, r ecurrent, in remission 02/15/2018 03/15/2019 Type 2 diabetes mellitus wit h hemoglobin A1c goal of less than 7.5% 11/14/2016 12/12/2019 Nephrolithiasis 11/12/2016 03/01/2019 Overview (11/12/2016): On CT 10/2016 ADVANCE DIRECTIVE INFORMATION 12/14/2006 04/04/2024 Overview (12/14/2006): Information offered-patient declined. documented as of this encounter (statuses as of 08/26/2024) Immunizations Name Administration Dates Next Due COVID-19 [...] Description 02/20/2025 12:00 PM EDT [facility] [address] [phone] Monserrat Altamirano PA-C [address] [place] [address] Health Maintenance Due Date Last Done Comments [...] Additional history exists CKD HGB USE SMARTSET 76223 12/06/202412/06, 10/22/2023, 10/22/2023, Additional history exists GFR 02/09/2025 08/09/2024, 07/01/2024, 12/07/2023, Additional history exists HbA1c 02/09/2025 08/09/2024, 09/30, 03/03/2023, Additional history exists Albumin/Creatinine Ratio 08/09/2025 025, 10/22/2023, 03/05/2023, Additional history exists CKD PHOS USE SMARTSET 80115 08/09/202507/30, 10/22/2023, 03/03/2023, Additional history exists Depression [...] filedocumented as of this encounter Care Teams Mechanical Engineering Advisor Relationship Specialty Start Date End Date Tahir Schrader DO [address] [place] [address] PCP - General Family Medicine 06/24/19 documented as of this encounter
--- OUTSIDE RECORDS SUMMARY | 2024-09-14 01:22 | External Medical Summary | Summary of Care ---
Author Name Unknown Organization [facility] Address [address] [facility] [place] [address] Phone [phone] Care Team Providers Care Ems Manager Name Role Phone Tahir Schrader DO Primary Care Provider Reason for Visit * Reason Onset Date Comments Other 08/19/2024 Encounter Details Date Type Department Care Team (Late st Contact Info) Description 08/19/2024 Telephone Family Practice [facility] [address] [place] [address] Tahir Schrader DO [address] [place] [address] Other Allergies Active Allergy Reactions Criticality Noted Date Comments Sina Inhibitors 11/14/2016 Codeine Edema face/lips/tongue High 12/13/2020 Lisinopril Cough 11/28/2016 Morphine And Codeine Edema face/lips/tongue High documented as of this encounter (statuses as of 09/02/2024) Medications NITROGLYCERIN 0.4 MG SL SUBLIndications:A ngina pectoris (HCC) One tablet under tongue if needed for chest pain. May repeat 3 times. If chest pain continues, call [phone] Tab 11 0 Active Losartan Potassium 100 [...] reflux 10/02/2007 Coronary artery disease invo lving [place] coronary artery of [place] heart without angina pectoris Assessment & Plan [...] mRNA, LNP-s, No Pre serve, 2-Dose Series ([employer]) 11/21/2020,10/24/2020 Covid-19, Mrna, Lnp-s, Pf, B ivalent, [...] encounter Miscellaneous Notes * Telephone Encounter - Monserrat Altamirano PA-C - 08/30/2024 10:13 AM EDT Urine orders are in for him - suggest repeat in 3-4 weeks. Where does he want med for sugar sent? The idea is to try the med, see if he urinates less Urology could be [place], [place] or [place]- whatever he prefers. Monserrat Altamirano PA-C Inboxologist [...] would be. Pt can be reached at [phone]. Thank you, Billie Reyes Supervisor Sandblaster [facility] 08/24/2024, [...] Description 02/20/2025 12:00 PM EDT Office Visit [facility] Riccardo Castillo [address] [phone] Monserrat Altamirano PA-C [address] [place] [address] Scheduled Orders Name Type Priority Associated Diagnoses Orde r Schedule MICROSCOPIC EXAM, URINE Lab Routine Hematuria, unspecified type Expected: 08/23/2024 (Approximate), Expires: 08/23/2025 URINALYSIS, REFLEX TO CULTURE (NOT FOR NEUTROPENIC PATIENTS) Lab Routine Hematuria, unspecified type Expected: 08/23/2024, Expires: 08/23/2025 Health Maintenance Due Date Last Done Comments Zoster Vaccines (1 of 2) 1996 Adult Wellness Visit 2012 Diabetic Eye Exam 12/20/2021 12/20/2020, , 09/01/2017, Additional history exists DTap/Tdap Vaccines (2 - Td or Tdap) 03/08/2022 03/08/2012, 08/14/1998 COVID-19 Vaccine ( season) 2024 02/21/2022, 11/21/2020, 10/24/2020 Diabetic Foot Exam 03/05/2024 03/05/2023, 0 02/11/2022, 12/13/2020, Additional history exists B-12 10/21/2024 10/22/2023, 07/2022, 02/04/2022, Additional history exists CKD HGB USE SMARTSET 57519 12/06/202412/06, 10/22/2023, 10/22/2023, Additional history exists Influenza Vaccine (FLU shot) (Season Ended) 2025 03/05/2023, 02/11/2022, 06/13/2020, Additional history exists GFR 02/09/2025 08/09/2024, 11/29, 12/07/2023, Additional history exists HbA1c 02/09/2025 08/09/2024, 09/30, 03/03/2023, Additional history exists Albumin/Creatinine Ratio 08/09/2025 025, 10/22/2023, 03/05/2023, Additional history exists CKD PHOS USE SMARTSET 65696 08/09/202507/30, 10/22/2023, 03/03/2023, Additional history exists Depression [...] less than 140/90 Coronary artery disease involving [place] coronary artery of [place] heart without angina pectoris Urinary frequency Chronic low back pain without sciatica, unspecified back pain laterality Other specified hypotension Hematuria, unspecified type- Primary Type 2 diabetes mellitus with hemoglobin A1c goal of less than 8.0% (HCC) Chronic kidney disease, stage 3a (HCC) documented in this encounter Care Teams Ems Manager Relationship Specialty Start Date End Date Tahir Schrader DO [address] [place] [address] PCP - General Family Medicine 06/24/19 documented as of this encounter
--- OUTSIDE RECORDS SUMMARY | 2024-09-14 01:23 | External Medical Summary | Summary of Care ---
Author Name Unknown Organization [facility] Address [address] [address] Phone [phone] Care Team Providers Care Field Representative/Health Education Name Role Phone Tahir Schrader DO Primary Care Provider Reason for Visit * Reason Comments NEW PATIENT Pt states that he is here to est care Encounter Details Date Type Department Care Team (Late st Contact Info) Description 08/09/2024 2:00 PM EDT Office Visit [facility] Riccardo Castillo [address] [phone] Monserrat Altamirano PA-C [address] [phone] Chronic kidney disease, stage 3a (HCC)*; Type 2 diabetes mellitus with hemoglobin A1c goal of less than 8.0% (HCC); Screening for prostate cancer; Major depressive disorder, recurrent, in remission ([facility]); Essential hypertension with goal blood pressure less than 140/90; 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 May repeat 3 times. If chest pain continues, call 911 25 Tab 11 03/11/20 10 Active Losartan Potassium 100 MG Oral Tablet (Cozaar)Indicatio ns:Essential hypertension with goal blood pressure less than 140/90 Take 1 Tablet by mouth in the morning. 90 Tablet 3 10/22/19 24 Active Aspirin 325 MG Oral Tablet Delayed Release Take 1 Tablet by mouth in the morning. Active amLODIPine Besylate 5 MG Oral Tablet (Norvasc) TAKE 1 TABLET EVERY DAY 90 Tablet 2 02/25/20 24 Active Rosuvastatin Calcium 40 MG Oral Tablet (Crestor) TAKE 1 TABLET EVERY DAY 90 Tablet 2 02/25/20 24 Active metFORMIN HCl 500 MG Oral Tablet (Glucophage)Indic ations:Impaired fasting glucose TAKE 1 TABLET TWICE DAILY WITH MORNING AND EVENING MEALS 180 Tablet 3 05/09/20 24 Active Venlafaxine HCl ER 75 MG Oral Capsule Extended Release 24 Hour (Effexor XR)Indications:Ma charissa depressive disorder, recurrent, in remission (HCC) TAKE 3 CAPSULES EVERY DAY 270 Capsule 3 05/31/20 24 Active Metoprolol Succinate ER 50 MG Oral Tablet Extended Release 24 Hour (toPROL XL)Indications:HT N, goal below 130/80 TAKE 1 TABLET EVERY MORNING 90 Tablet 3 05/31/20 24 Active Mirtazapine 45 MG Oral Tablet (Remeron)Indicati ons:Major depressive disorder, recurrent, in remission (HCC) TAKE 1 TABLET AT BEDTIME 90 Tablet 2 06/12/19 25 Active Tamsulosin HCl 0.4 MG Oral Capsule (Flomax)Indicatio ns:Chronic kidney disease, unspecified CKD stage TAKE 1 CAPSULE EVERY MORNING 90 Capsule 2 06/12/19 25 Active zoster vac recomb adjuvanted (SHINGRIX) 50 MCG injection Inject 0.5 mL into a large muscle now and repeat dose in 60 to 180 days 1 Each 1 02/16/20 18 025 Discontinued Zoster Vac Recomb Adjuvanted 50 MCG/0.5ML Intramuscular Suspension Reconstituted (Shingrix)Indicat ions:Need for shingles vaccine Inject 0.5 mL into a large muscle now and repeat dose in 60 to 180 days 1 Each 1 02/12/20 22 025 Discontinued Accu-Chek Guide w/Device KitIndications:Ty pe 2 diabetes mellitus with hemoglobin A1c goal of less than 8.0% (HCC) Use as directed. Use to test blood sugar once daily. E11.9 1 Kit 10/27/19 24 025 Discontinued Furosemide 20 MG Oral Tablet (Lasix)Indication s:Edema, unspecified type Take 1 Tablet by mouth in the morning. 90 Tablet 3 01/01/20 24 025 Discontinued Accu-Chek Guide In Vitro Strip (Glucose Blood)Indications :Type 2 diabetes mellitus with hemoglobin A1c goal of less than 8.0% (HCC) Use to test blood sugar once daily. E11.9 100 Strip 3 01/01/20 24 025 Discontinued Accu-Chek Softclix LancetsIndication s:Type 2 diabetes mellitus with hemoglobin A1c goal of less than 8.0% (HCC) Use to test blood sugar once daily. E11.9 100 Each 2 01/01/20 24 025 Discontinued documented as of this encounter (statuses as of 08/09/2024) Active Problems Problem Noted Date Diagnosed Date [...] reflux 10/02/2007 Coronary artery disease invo lving hoh coronary artery of hoh heart without angina pectoris Assessment & Plan (08/09/2024 2:44 PM EDT): On statin documented as of this encounter (statuses as of 08/09/2024) Resolved Problems Problem Noted Date Diagnosed Date Resolved Date Major depressive disorder, r ecurrent, in remission 02/15/2018 03/15/2019 Type 2 diabetes mellitus wit h hemoglobin A1c goal of less than 7.5% 11/14/2016 12/12/2019 Nephrolithiasis 11/12/2016 03/01/2019 Overview (11/12/2016): On CT 10/2016 ADVANCE DIRECTIVE INFORMATION 12/14/2006 04/04/2024 Overview (12/14/2006): Information offered-patient declined. documented as of this encounter (statuses as of 08/09/2024) Immunizations Name Administration Dates Next Due COVID-19 [...] 0 06/01/1979 - 06/01/1989 Smokeless Tobacco: Former Tobacco Cessation:Counseling Given: Not Answered Comments:quit in 1993 Alcohol Use Standard Drinks/Week [...] on file documented as of this encounter Last Filed Vital Signs Vital Sign Reading Time Taken Comments Blood Pressure 86/59 08/09/2024 1:48 PM EDT Pulse 68 08/09/2024 1:48 PM EDT Temperature 36.1 °C (96.9 °F) 08/09/2024 1:48 PM ED T Respiratory Rate 16 08/09/2024 1:48 PM EDT Oxygen Saturation 97% 08/09/2024 1:48 PM EDT Inhaled Oxygen Concentration - - Weight 79.1 kg (174 lb 4.8 oz) 08/09/2024 1:48 P M EDT Height 165.1 cm (5' 5") 08/09/2024 1:48 PM EDT Body Mass Index 29.01 08/09/2024 1:48 PM EDT documented in this encounter Progress Notes * Monserrat Altamirano PA-C - 08/09/2024 1:50 PM EDT Images from the original note were not included. Subjective Curtis Lindsay Jr. is a 79 year old male that presents for NEW PATIENT (Pt states that he is here to est care ) Here to establish care Former Dr Raciel medina but we are closer to home for him. Generally in good health for his age Some aches and pains of arthritis in shoulders and back Main issue right now is urination He tracked things for 7 days Went 11-19 times in 24 hours Average 14-16 times Has the sensation in his penis that he has pressure building up This is not in his testicles or in his rectum. Told he was diabetic. Never got high numbers when he checked. Checked at varying times. Stopped checking. Was given glipizde for sugar. Feet and ankles bloomed right up. He called in and was given furosemide and it made him urinate more. The ankles did go down. Had a mild heart attack in 2002. Past Medical History: Diagnosis Date Benign neoplasm of colon 10/19/06 adenomatous polyps--repeat 5 years Benign neoplasm of colon 04/19/12 COLONOSCOPY FLEXIBLE PROXIMAL DIAGNOSTIC performed by Romeo Swift MD at [facility], ADENOMATOUS POLYPS REPEAT COLONOSCOPY IN 5 YEARS Coronary atherosclerosis of hoh coronary artery Cath 1999 - % D2 lesion - medical management - Dr Pittman. Depressive disorder, not elsewhere classified Essential hypertension with goal blood pressure less than 140/90 02/11/2016 Mixed dyslipidemia Nephrolithiasis 11/12/[address] 10/2016 Type 2 diabetes mellitus with hemoglobin A1c goal of less than 7.5% (HCC) 11/14/2016 Mirtazapine 45 MG Oral Tablet (Remeron) Tamsulosin HCl 0.4 MG Oral Capsule (Flomax) Metoprolol Succinate ER 50 MG Oral Tablet Extended Release 24 Hour (toPROL XL) Venlafaxine HCl ER 75 MG Oral Capsule Extended Release 24 Hour (Effexor XR) metFORMIN HCl 500 MG Oral Tablet (Glucophage) amLODIPine Besylate 5 MG Oral Tablet (Norvasc) Rosuvastatin Calcium 40 MG Oral Tablet (Crestor) Aspirin 325 MG Oral Tablet Delayed Release Losartan Potassium 100 MG Oral Tablet (Cozaar) NITROGLYCERIN 0.4 MG SL SUBL Extensive ROS Constitutional (f/c/wt/vision/hearing): Negative and wears glasses, occ light headed if he stands too fast Resp (cough/sob/meadows): Negative CV (cp/palp/fluttering/diaphoresis/meadows/pnd):Negative GI (n/v/d/hrtburn): bowels have changed since his urinary pattern has changed - instead of 2 good bm he is having 4-5 smaller bm , not gassier Endo (hair/cold or heat intol/ 3 p's): see above hpi Neuro (shaking/weak/fatigu/parasthesi/): Negative Skin (rash/easy bruis/xerosis):on a happy pill Psy (si/hi/halluc/): Negative (nocturia/hesit/drib/sexual review): Negative Lymph (swollen glands/b sx's/: Negative Objective BP 86/59 | Pulse 68 | Temp 96.9 °F (36.1 °C) (Tympanic) | Resp 16 | Ht 5' 5" (1.651 m) | Wt 174 lb 4.8 oz (79.1 kg) | SpO2 97% | BMI 29.01 kg/m² | BSA 1.9 m² BP Readings from Last 3 Encounters: 08/09/24 86/59 01/26/24 102/58 12/07/23 140/66 Wt Readings from Last 3 Encounters: 08/09/24 174 lb 4.8 oz (79.1 kg) 01/26/24 181 lb 12.8 oz (82.5 kg) 12/07/23 195 lb 6.4 oz (88.6 kg) BMI Readings from Last 3 Encounters: 08/09/24 29.01 kg/m² 01/26/24 29.57 kg/m² 12/07/23 31.78 kg/m² Ht Readings from Last 3 Encounters: 08/09/24 5' 5" (1.651 m) 10/22/23 5' 5.75" (1.67 m) 08/14/22 5' 5.75" (1.67 m) General: alert, healthy, and no distress Head: Normocephalic, No masses, lesions, tenderness or abnormalities Eye Exam: PERRLA, extraocular movements intact, conjunctiva are pink and non- injected, sclera clear Ears: External ears normal, Canals clear, TM's Normal Nose: no mucosal erythema, no mucosal edema, no purulent discharge Oropharynx: no exudate, no erythema, lips, buccal mucosa, and tongue normal, and mucous membranes are moist Neck: supple, no adenopathy, no bruits, thyroid normal size, non-tender, without nodularity Heart: regular rate & rhythm, no murmur, no gallops, S-1 normal, and S-2 normal Lungs: chest symmetric with normal AP diameter, no chest deformities noted, no chest wall tenderness, lungs clear to auscultation Pulses: carotid=2/4 w/o bruits Abdomen: abdomen soft, non-tender, normal bowel sounds, and no masses or organomegaly Back: back symmetric, no curvature, no costovertebral angle tenderness, range of motion is normal Extremities: less than 2 second capillary refill, no joint deformities, effusion, or inflammation Skin: skin color, texture, turgor are normal, no rashes or significant lesions Musculoskeletal: .normor FROM UE and LE, normal tone, no gross deformity noted, neg LAKISHA, no synovitis appreciated in the small joints of the hands Results reviewed: BMP results Recent Labs Units 12/18/23 1205 12/07/23 1411 10/22/23 1325 SODIUM - [facility] mmol/L 141 143 133* POTASSIUM - [facility] mmol/L 3.7 3.9 4.0 CHLORIDE - [facility] mmol/L 105 108* 93* CO2 - [facility] mmol/L 26 25 25 CREATININE - [facility] mg/dL 1.1 1.2 1.5* BUN - [facility] mg/dL 16 20 29* Lipid panel results Recent Labs Units 10/22/23 1325 03/03/23 1503 CHOLESTEROL - [facility] mg/dL 125 114 HDL CHOLESTEROL - [facility] mg/dL 42 42 TRIGLYCERIDES - [facility] mg/dL 299* 189* HbA1c results Recent Labs Units 10/22/23 1325 03/03/23 1503 HEMOGLOBIN A1C - [facility] % 12.7* 9.6* Assessment and Plan Chronic kidney disease, stage 3a ([facility]) Orders: RENAL FUNCTION PANEL; Future Type 2 diabetes mellitus with hemoglobin A1c goal of less than 8.0% ([facility]) Orders: ALBUMIN / CREATININE RATIO, URINE; Future HEMOGLOBIN A1C; Future Screening for prostate cancer Orders: PSA; Future Major depressive disorder, recurrent, in remission ([facility]) Stable on effexor Essential hypertension with goal blood pressure less than 140/90 Below goal, as below 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 excluding any time spent in the performance of separately billed services. Monserrat Altamirano PA-C 08/09/2024 2:44 PM * Loretta Up LPN - 08/09/2024 1:50 PM EDT Urine albumin/creatinine ratio ordered today. Provider aware. documented in this encounter Nursing Notes * Loretta Up LPN - 08/09/2024 1:47 PM EDT Curtis Lindsay Jr. 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 On statin * Assessment & Plan Note - Monserrat Altamirano PA-C - 08/09/2024 2:44 PM EDT Associated Problem(s): Chronic kidney disease, stage 3a (HCC) Orders: RENAL FUNCTION PANEL; Future * Assessment & Plan Note - Monserrat Altamirano PA-C - 08/09/2024 2:44 PM EDT Associated Problem(s): Type 2 diabetes mellitus with hemoglobin A1c goal of less than 8.0% (HCC) Orders: ALBUMIN / CREATININE RATIO, URINE; Future HEMOGLOBIN A1C; Future * Assessment & Plan Note - Monserrat Altamirano PA-C - 08/09/2024 2:44 PM EDT Associated Problem(s): Major depressive disorder, recurrent, in remission (HCC) Stable on effexor * Assessment & Plan Note - Monserrat Altamirano PA-C - 08/09/2024 2:44 PM EDT Associated Problem(s): Essential hypertension with goal blood pressure less than 140/90 Below goal, as below documented in this encounter Plan of Treatment Upcoming Encounters Date Type Department Care Team (Late st Contact Info) Description 02/20/2025 12:00 PM EDT [facility] [address] [phone] Monserrat Altamirano PA-C [address] [phone] Pending Results Name Type Priority Associated Diagnoses Date /Time RENAL FUNCTION PANEL Lab Routine Chronic kidney disease, stage 3a (HCC) 08/09/2024 3:10 PM EDT ALBUMIN / CREATININE RATIO, URINE Lab Routine Type 2 diabetes mellitus with hemoglobin A1c goal of less than 8.0% (HCC) 08/09/2024 3:10 PM EDT PSA Lab Routine Screening for prostate cancer 08/09/2024 3:10 PM EDT Scheduled Orders Name Type Priority Associated Diagnoses Orde r Schedule RENAL FUNCTION PANEL Lab Routine Chronic kidney disease, stage 3a (HCC) Expected: 08/09/2024 (Approximate), Expires: 08/09/2025 ALBUMIN / CREATININE RATIO, URINE Lab Routine Type 2 diabetes mellitus with hemoglobin A1c goal of less than 8.0% (HCC) Expected: 08/09/2024, Expires: 08/09/2025 PSA Lab Routine Screening for prostate cancer Expected: 08/09/2024 (Approximate), Expires: 08/09/2025 Health Maintenance Due Date Last Done Comments [...] 03/05/2023, 0 02/11/2022, 12/13/2020, Additional history exists HbA1c 04/23/2024 10/22/2023, 10/0 07/2022, 02/04/2022, Additional history exists GFR 06/19/2024 12/18/2023, 07/0 12/2023, 10/22/2023, Additional history exists Albumin/Creatinine Ratio 10/21/2024 024, 03/05/2023, 06/19/2021, Additional history exists B-12 10/21/2024 10/22/2023, 10/0 07/2022, 02/04/2022, Additional history exists CKD PHOS USE SMARTSET 52923 10/21/2024/07/2023, 03/03/2023, 02/04/2022 CKD HGB USE SMARTSET 61676 12/06/202412/06, 10/22/2023, 10/22/2023, Additional history exists Depression Monitoring 08/09/2025 08/09/2024 [...] less than 140/90 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
--- OUTSIDE RECORDS SUMMARY | 2024-09-14 01:23 | External Medical Summary ---
Author Name Unknown Address Unknown Organization [id number]:[facility] [place] [facility] [address] [place] [address] Laboratory Report Ordering Provider Test Date Status GIORGI MENDOZA 08/09/2024 15:10:20 Final Observation Date Value Abnormality Reference (Units ) Status BUN 08/09/2024 15:10:20 16 6-20 (mg/dL) Final Creatinine 08/09/2024 15:10:20 1.4 Above high normal 0.6-1.2 (mg/dL) Final Glomerular filtration rate/1.73 sq M.predicted [Volume Rate/Area] in Serum, Plasma or Blood by Creatinine-based formula (CKD-EPI) 08/09/2024 15:10:20 50 Below low normal >=60 (mL/min) Final eGFR is calculated based on the CKD-EPI 2020 equation. Sodium 08/09/2024 15:10:20 134 Below low normal 135 -146 (mmol/L) Final Potassium 08/09/2024 15:10:20 4.5 3.5-5.1 (m mol/L) Final Cl 08/09/2024 15:10:20 100 98-107 (mm ol/L) Final CO2 08/09/2024 15:10:20 23 22-32 (mmo l/L) Final Anion gap 08/09/2024 15:10:20 11 7-15 (mmol /L) Final Glucose 08/09/2024 15:10:20 477 Above high normal 70 -120 (mg/dL) Final Calcium 08/09/2024 15:10:20 9.7 8.4-10.2 ( mg/dL) Final Albumin 08/09/2024 15:10:20 4.2 3.8-5.0 (g /dL) Final Phosphate 08/09/2024 15:10:20 2.5 2.5-4.8 (m g/dL) Final Performing Location LABORATORY [facility] - [address] [address]
--- OUTSIDE RECORDS SUMMARY | 2024-09-14 01:23 | External Medical Summary ---
Author Name Unknown Address Unknown Organization K01:[facility] [place] - [facility] [address] [place] [address] Laboratory Report Ordering Provider Test Date Status GIORGI MENDOZA 08/09/2024 15:10:20 Final Normal: <30 mg/g creatinine< br/>High: 30-300 mg/g creatinine
Very High: >300 mg/g creatinine
Nephrotic: >2200 mg/g creatinine Observation Date Value Abnormality Reference (Units ) Status Albumin, Urine 08/09/2024 15:10:20 44.00 (mg/dL) Final Creatinine, Urine 08/09/2024 15:10:20 69 (mg/dL) Final Albumin/Creatinine [Mass Ratio] in Urine 08/09/2024 15:10:20 638 Above high normal <30 (mg/g Creat) Final Performing Location [facility] [place] - [facility] [address] [facility] [place] [address]
--- OUTSIDE RECORDS SUMMARY | 2024-09-14 01:23 | External Medical Summary | Summary of Care ---
Author Name Unknown Organization [facility] Address [address] [facility] [place] [address] Phone [phone] Care Team Providers Care Residency Coordinator Name Role Phone Tami Schrader DO Primary Care Provider Reason for Visit * Reason Comments eRx-Medication Refill Encounter Details Date Type Department Care Team (Late st Contact Info) Description 05/08/2024 Refill Family Practice [facility] [address] [place] [address] Tami Schrader DO [address] [place] [address] Impaired fasting glucose Allergies Active Allergy Reactions Criticality Noted Date Comments Sina Inhibitors 11/14/2016 Codeine Edema face/lips/tongue High 12/13/2020 Lisinopril Cough 11/28/2016 Morphine And Codeine Edema face/lips/tongue High documented as of this encounter (statuses as of 05/09/2024) Medications NITROGLYCERIN 0.4 MG SL SUBLIndications: Angina pectoris (HCC) One tablet under tongue if needed for chest pain. May repeat 3 times. If chest pain continues, call [phone] Tab 11 03/11/20 10 Active Additional Information Patient not taking.Reported on 12/07/2023 zoster vac recomb adjuvanted (SHINGRIX) 50 MCG injection Inject 0.5 mL into a large muscle now and repeat dose in 60 to 180 days 1 Each 1 02/16/20 18 Active Zoster Vac Recomb Adjuvanted 50 MCG/0.5ML Intramuscular Suspension Reconstituted (Shingrix)Indica tions:Need for shingles vaccine Inject 0.5 mL into a large muscle now and repeat dose in 60 to 180 days 1 Each 1 02/12/20 22 Active Venlafaxine HCl ER 75 MG Oral Capsule Extended Release 24 Hour (Effexor XR) TAKE 3 CAPSULES BY MOUTH DAILY. 270 Capsule 10 03/22/20 23 Active Tamsulosin HCl 0.4 MG Oral Capsule (Flomax)Indicati ons:Chronic kidney disease, unspecified CKD stage TAKE 1 CAPSULE BY MOUTH IN THE MORNING. 90 Capsule 3 08/27/19 24 Active Mirtazapine 45 MG Oral Tablet (Remeron)Indicat ions:Major depressive disorder, recurrent, in remission (HCC) TAKE 1 TABLET AT BEDTIME 90 Tablet 3 08/27/19 24 Active Losartan Potassium 100 MG Oral Tablet (Cozaar)Indicati ons:Essential hypertension with goal blood pressure less than 140/90 Take 1 Tablet by mouth in the morning. 90 Tablet 3 10/22/19 24 Active Accu-Chek Guide w/Device KitIndications:T ype 2 diabetes mellitus with hemoglobin A1c goal of less than 8.0% (HCC) Use as directed. Use to test blood sugar once daily. E11.9 1 Kit 10/27/19 24 Active Metoprolol Succinate ER 50 MG Oral Tablet Extended Release 24 Hour (toPROL XL)Indications:H TN, goal below 130/80 Take 1 Tablet by mouth in the morning. 90 Tablet 1 11/19/19 24 Active Aspirin 325 MG Oral Tablet Delayed Release Take 1 Tablet by mouth in the morning. Active Furosemide 20 MG Oral Tablet (Lasix)Indicatio ns:Edema, unspecified type Take 1 Tablet by mouth in the morning. 90 Tablet 3 01/01/20 24 Active Accu-Chek Guide In Vitro Strip (Glucose Blood)Indication s:Type 2 diabetes mellitus with hemoglobin A1c goal of less than 8.0% (HCC) Use to test blood sugar once daily. E11.9 100 Strip 3 01/01/20 24 Active Accu-Chek Softclix LancetsIndicatio ns:Type 2 diabetes mellitus with hemoglobin A1c goal of less than 8.0% (HCC) Use to test blood sugar once daily. E11.9 100 Each 2 01/01/20 24 Active amLODIPine Besylate 5 MG Oral Tablet (Norvasc) TAKE 1 TABLET EVERY DAY 90 Tablet 2 02/25/20 24 Active Rosuvastatin Calcium 40 MG Oral Tablet (Crestor) TAKE 1 TABLET EVERY DAY 90 Tablet 2 02/25/20 24 Active metFORMIN HCl 500 MG Oral Tablet (Glucophage)Blanca cations:Impaired fasting glucose TAKE 1 TABLET TWICE DAILY WITH MORNING AND EVENING MEALS 180 Tablet 3 05/09/20 24 Active metFORMIN HCl 500 MG Oral Tablet (Glucophage)Blanca cations:Impaired fasting glucose TAKE 1 TABLET TWICE DAILY WITH MORNING AND EVENING MEALS 180 Tablet 1 12/12/19 24 2023 Discontinued documented as of this encounter (statuses as of 05/09/2024) Active Problems Problem Noted Date Diagnosed Date Chronic kidney disease, stage 3a 07/15/2021 Overview: Per CKD protocol Major depressive disorder, recurrent, in remissi on 12/13/2020 Type 2 diabetes mellitus wit h hemoglobin A1c goal of less than 8.0% 12/12/2019 History of kidney stones 03/01/2019 Essential hypertension with goal blood pressure less than 140/90 02/11/2016 History of tobacco use 10/02/2007 Esophageal reflux 10/02/2007 Coronary artery disease invo lving [place] coronary artery of [place] heart without angina pectoris documented as of this encounter (statuses as of 05/09/2024) Resolved Problems Problem Noted Date Diagnosed Date Resolved Date Major depressive disorder, r ecurrent, in remission 02/15/2018 03/15/2019 Type 2 diabetes mellitus wit h hemoglobin A1c goal of less than 7.5% 11/14/2016 12/12/2019 Nephrolithiasis 11/12/2016 03/01/2019 Overview (11/12/2016): On CT 10/2016 ADVANCE DIRECTIVE INFORMATION 12/14/2006 04/04/2024 Overview (12/14/2006): Information offered-patient declined. documented as of this encounter (statuses as of 05/09/2024) Immunizations Name Administration Dates Next Due COVID-19 mRNA, LNP-s, No Pre serve, 2-Dose Series ([employer] [place]) 11/21/2020,10/24/2020 Covid-19, Mrna, Lnp-s, Pf, B ivalent, [...] Answer Date Recorded PHQ Adult Total Score 0 08/14/2022 Hunger Vital Sign Answer Date Recorded Worried About Running Out of Food in the Last Ye ar Never true 03/15/2019 Ran Out of Food in the Last Year Never true 03/15/2019 Sex and Gender Information Value Date Recorded [...] encounter Miscellaneous Notes * Telephone Encounter - Aiyana Zayas, [facility] - 05/09/2024 4:03 PM EST Signed Prescriptions: Disp Refills metFORMIN HCl 500 MG Oral Tablet (Glucopha*180 Ta*3 Sig: TAKE 1 TABLET TWICE DAILY WITH MORNING AND EVENING MEALS Authorizing Provider: TAMI SCHRADER Ordering User: AIYANA ZAYAS * Telephone Encounter - Maricarmen Brewster [facility] - 05/09/2024 4:01 PM ESTPending Prescriptions: Disp Refills metFORMIN HCl 500 MG Oral Tablet [Pharmacy*180 Ta*3 Sig: TAKE 1TABLET TWICE DAILY WITH MORNING AND EVENING MEALS Electronically signed by Maricarmen Brewster [facility] at 05/09/2024 4:01 PM EST documented in this encounter Plan of Treatment Upcoming Encounters Date Type Department Care Team (Late st Contact Info) Description 08/25/2024 6:20 PM EDT Office Visit [facility] [address] [address] Tami Schrader, [address] [place] [address] 02/27/2025 12:00 PM EDT Office Visit [facility] [address] [address] Tami Schrader, [address] [place] [address] Health Maintenance Due Date Last Done Comments Zoster Vaccines (1 of 2) 1996 Adult Wellness Visit 2012 Diabetic Eye Exam 12/20/2021 12/20/2020, , 09/01/2017, Additional history exists DTap/Tdap Vaccines (2 - Td or Tdap) 03/08/2022 03/08/2012, 08/14/1998 Depression Monitoring 08/15/2023 08/14/2022 COVID-19 Vaccine ( season) 2024 02/21/2022, 11/21/2020, [...] Additional history exists CKD PHOS USE SMARTSET 29871 10/21/20242 07/2023, 03/03/2023, 02/04/2022 CKD HGB USE SMARTSET 16111 12/06/202412/06, 10/22/2023, 10/22/2023, Additional history exists Colonoscopy Discontinued 04/19/2012, 04/01, 10/19/2006 RETIRED - COLONOSCOPY-EVERY 5 YRS AGES 18-100 Discontinued 04/20/2012, 04/19/2012, 04/19/2012, Additional history exists Pneumococcal Vaccine: 65+ Years Completed 08/11/2016, 08/03/2014 HPV (Gardasil) Vaccine [...] as of this encounter Visit Diagnoses Diagnosis Impaired fasting glucose documented in this encounter Care Teams Residency Coordinator Relationship Specialty Start Date End Date Tami Schrader DO [address] [place] [address] PCP - General Family Medicine 06/24/19 documented as of this encounter
--- OUTSIDE RECORDS SUMMARY | 2024-09-14 01:23 | External Medical Summary ---
Author Name Unknown Address Unknown Organization K01:[facility] [place] [address] [facility] [address] Laboratory Report Ordering Provider Test Date Status DENG MCGINNIS 08/09/2024 15:10:20 Final Observation Date Value Abnormality Reference (Units ) Status HbA1C 08/09/2024 15:10:20 12.6 Above high normal 4. 0-5.6 (%) Final The use of HbA1c to monitor glycemic status is based on normal hemoglobin and HbA composition. This test should not be used in patients with abnormal hemoglobin that affects the half life of the red blood cell or the in vivo glycation rates. Glucose, estimated average 08/09/2024 15:10:20 315 Above high normal <126 (mg/dL) Alton stroud Performing Location [facility] [facility] [address] [facility] [address] [facility] [address]
--- OUTSIDE RECORDS SUMMARY | 2024-09-14 01:23 | External Medical Summary ---
Author Name Unknown Address Unknown Organization K01:[facility]AT[facility] - [address] [address] Laboratory Report Ordering Provider Test Date Status GIORGI MENDOZA 08/09/2024 15:10:20 Final Observation Date Value Abnormality Reference (Units ) Status PSA 08/09/2024 15:10:20 1.00 <4.10 (ng/ mL) Final Performing Location [facility] - [address] [place] [address]
--- OUTSIDE RECORDS SUMMARY | 2024-09-14 01:23 | External Medical Summary | Summary of Care ---
Author Name Unknown Organization [facility] Address [address] [address] Phone [phone] Care Team Providers Care Registered Midwife Name Role Phone Tahir Schrader DO Primary Care Provider Reason for Visit * Reason Comments Outpatient Testing Encounter Details Date Type Department Care Team (Late st Contact Info) Description 08/09/2024 3:00 PM EDT Laboratory Laboratory, [facility] [address] [place] [phone] [place], Laboratory [address] [place], [place] [id number] Type 2 diabetes mellitus with hemoglobin A1c goal of less than 8.0% ([facility]); Chronic kidney disease, stage 3a ([facility]); Screening for prostate cancer Allergies Active Allergy Reactions Criticality Noted Date Comments Sina Inhibitors 11/14/2016 Codeine Edema face/lips/tongue High 12/13/2020 Lisinopril Cough 11/28/2016 Morphine And Codeine Edema face/lips/tongue High documented as of this encounter (statuses as of 08/09/2024) Medications NITROGLYCERIN 0.4 MG SL SUBLIndications:A ngina pectoris ([facility]) One tablet under tongue if needed for chest pain. May repeat 3 times. If chest pain continues, call [phone] Tab 11 0 Active Losartan Potassium 100 [...] reflux 10/02/2007 Coronary artery disease invo lving [place] coronary artery of [place] heart without angina pectoris Assessment & Plan [...] Description 02/20/2025 12:00 PM EDT Office Visit [facility] [address] [place] [phone] Monserrat Altamirano PA-C [address] [place] [address] Pending Results Name Type Priority Associated Diagnoses Date /Time ALBUMIN / CREATININE RATIO, URINE Lab Routine Type 2 diabetes mellitus with hemoglobin A1c goal of less than 8.0% ([facility]) 08/09/2024 3:10 PM EDT Health Maintenance Due Date Last [...] 03/05/2023, 0 02/11/2022, 12/13/2020, Additional history exists Albumin/Creatinine Ratio 10/21/2024 024, 03/05/2023, 06/19/2021, Additional history exists B-12 10/21/2024 10/22/2023, 1007/2022, 02/04/2022, Additional history exists CKD HGB USE SMARTSET 25774 12/06/202412/06, 10/22/2023, 10/22/2023, Additional history exists GFR 02/09/2025 08/09/2024, 11/29, 12/07/2023, Additional history exists HbA1c 02/09/2025 08/09/2024, 09/30, 03/03/2023, Additional history exists CKD PHOS USE SMARTSET 93844 08/09/202507/30, 10/22/2023, 03/03/2023, Additional history exists Depression [...] Procedure Name Priority Date/Time Associated Diagnosis Comments HEMOGLOBIN A1C Routine 08/09/2024 3:10 PM EDT Type 2 diabetes mellitus with hemoglobin A1c goal of less than 8.0% (HCC) RENAL FUNCTION PANEL Routine 08/09/2024 3:10 PM EDT Chronic kidney disease, stage 3a (HCC) PSA Routine 08/09/2024 3:10 PM EDT Screening for prostate cancer documented in this encounter Results * PSA (08/09/2024 3:10 PM EDT) PSA 1.00 <4.10 ng/mL 08/09/2024 11:01 PM EDT LABORATORY [facility] Blood Venous blood specimen / Unknown Venipuncture / Unknown 08/09/2024 3:10 PM EDT 08/09/2024 3:10 PM EDT us Monserrat Altamirano PA-C LAB BLOOD ORDERABLES Court cook Result LAB[facility] [address] [place] [address] * (ABNORMAL) RENAL FUNCTION PANEL (08/09/2024 3:10 PM EDT) Pathologist [facility] BUN 16 6 - 20 mg/dL 08/09/2024 10:45 PM EDT [facility] CREATININE 1.4(H) 0.6 - 1.2 mg/dL 08/09/2024 10:45 PM EDT [facility] EGFR 50(L) >=60 mL/min 08/09/2024 10:45 PM EDT [facility] Comment:eGFR is calculated b ased on the CKD-EPI 2020 equation. SODIUM 134(L) 135 - 146 mmol/L 08/09/2024 10:45 PM EDT [facility] POTASSIUM 4.5 3.5 - 5.1 mmol/L 08/09/2024 10:45 PM EDT [facility] CHLORIDE 100 98 - 107 mmol/L 08/09/2024 10:45 PM EDT [facility] CO2 23 22 - 32 mmol/L 08/09/2024 10:45 PM EDT [facility] ANION GAP 11 7 - 15 mmol/L 08/09/2024 10:45 PM EDT [facility] GLUCOSE 477(H) 70 - 120 mg/dL 08/09/2024 10:45 PM EDT [facility] CALCIUM 9.7 8.4 - 10.2 mg/dL 08/09/2024 10:45 PM EDT [facility] Albumin 4.2 3.8 - 5.0 g/dL 08/09/2024 10:45 PM EDT [facility] Phosphorus 2.5 2.5 - 4.8 mg/dL 08/09/2024 10:45 PM EDT LAB[facility]ORY [facility] Blood Venous blood specimen / Unknown Venipuncture / Unknown 08/09/2024 3:10 PM EDT 08/09/2024 3:10 PM EDT Monserrat Altamirano PA-C LAB BLOOD ORDERABLES Court l Result Performing Organization Address [facility] de Phone Number [facility] [address] [place], [place] [phone] * (ABNORMAL) HEMOGLOBIN A1C (08/09/2024 3:10 PM EDT) Hemoglobin A1C 12.6(H) 4.0 - 5.6 % 08/09/2024 10:48 PM EDT LABORATORY [facility] Comment:The use of HbA1c to monitor glycemic status is based on normal hemoglobin and HbA composition. This test should not be used in patients with abnormal hemoglobin that affects the half life of the red blood cell or the in vivo glycation rates. Estimated Average Glucose 315(H) <126 mg/dL 08/09/2024 10:48 PM EDT LAB[facility]ATORY [facility] Blood Venous blood specimen / Unknown Venipuncture / Unknown 08/09/2024 3:10 PM EDT 08/09/2024 3:10 PM EDT Aiyana Zayas [facility] LAB BLOOD ORDERABLES F inal Result Performing Organization Address [facility] Co de Phone Number LAB[facility]ATORY [facility] [address] [place], [place] [phone] documented in this encounter Visit Diagnoses Diagnosis [...] less than 140/90 Coronary artery disease involving [place] coronary artery of [place] heart without angina pectoris Urinary frequency Chronic low back pain without sciatica, unspecified back pain laterality Other specified hypotension Type 2 diabetes mellitus with hemoglobin A1c goal of less than 8.0% (HCC) Chronic kidney disease, stage 3a (HCC) Screening for prostate cancer Special screening for malignant neoplasm of prostate documented in this encounter Care Teams Registered Midwife Relationship Specialty Start Date End Date Tahir Schrader DO [address] [place] [address] PCP - General Family Medicine 06/24/19 documented as of this encounter
--- OUTSIDE RECORDS SUMMARY | 2024-09-14 01:23 | External Medical Summary | Summary of Care ---
Author Name Unknown Organization [facility] Address [address] [facility] [facility] [place] [address] Phone [phone] Care Team Providers Care Barrel Raiser Name Role Phone Tami Schrader DO Primary Care Provider Reason for Visit * Reason Comments eRx-Medication Refill Encounter Details Date Type Department Care Team (Late st Contact Info) Description 06/11/2024 Refill Family Practice [facility] [address] [place] [address] Tami Schrader DO [address] [place] [address] Major depressive disorder, recurrent, in remission (HCC); Chronic kidney disease, unspecified CKD stage Allergies Active Allergy Reactions Criticality Noted Date Comments Sina Inhibitors 11/14/2016 Codeine Edema face/lips/tongue High 12/13/2020 Lisinopril Cough 11/28/2016 Morphine And Codeine Edema face/lips/tongue High documented as of this encounter (statuses as of 06/12/2024) Medications NITROGLYCERIN 0.4 MG SL SUBLIndications: Angina pectoris (HCC) One tablet under tongue if needed for chest pain. May repeat 3 times. If chest pain continues, call [phone] Tab 11 03/11/20 10 Active Additional Information [...] days 1 Each 1 02/12/20 22 Active Losartan Potassium 100 MG Oral Tablet (Cozaar)Indicati ons:Essential hypertension with goal blood pressure less than 140/90 Take 1 Tablet by mouth in the morning. 90 Tablet 3 10/22/19 24 Active Accu-Chek Guide w/Device KitIndications:T ype 2 diabetes mellitus with hemoglobin A1c goal of less than 8.0% ([facility]) Use as directed. Use to test blood sugar once daily. E11.9 1 Kit 10/27/19 24 Active Aspirin 325 MG Oral Tablet [...] MORNING 90 Capsule 2 06/12/19 25 Active Tamsulosin HCl 0.4 MG Oral Capsule (Flomax)Indicati ons:Chronic kidney disease, unspecified CKD stage TAKE 1 CAPSULE BY MOUTH IN THE MORNING. 90 Capsule 3 08/27/19 24 2024 Discontinued Mirtazapine 45 MG Oral Tablet (Remeron)Indicat ions:Major depressive disorder, recurrent, in remission (HCC) TAKE 1 TABLET AT BEDTIME 90 Tablet 3 08/27/19 24 2024 Discontinued documented as of this encounter (statuses as of 06/12/2024) Active Problems Problem Noted Date Diagnosed Date [...] reflux 10/02/2007 Coronary artery disease invo lving [place] coronary artery of [place] heart without angina pectoris documented as of this encounter (statuses as of 06/12/2024) Resolved Problems Problem Noted Date Diagnosed Date Resolved Date Major depressive disorder, r ecurrent, in remission 02/15/2018 03/15/2019 Type 2 diabetes mellitus wit h hemoglobin A1c goal of less than 7.5% 11/14/2016 12/12/2019 Nephrolithiasis 11/12/2016 03/01/2019 Overview (11/12/2016): On CT 10/2016 ADVANCE DIRECTIVE INFORMATION 12/14/2006 04/04/2024 Overview (12/14/2006): Information offered-patient declined. documented as of this encounter (statuses as of 06/12/2024) Immunizations Name Administration Dates Next Due COVID-19 mRNA, LNP-s, No Pre serve, 2-Dose Series ([employer]) 11/21/2020,10/24/2020 Covid-19, Mrna, Lnp-s, Pf, B ivalent, [...] encounter Miscellaneous Notes * Telephone Encounter - Lyric Luna mindy - 06/12/2024 1:47 PM ESTSigned Prescriptions: Disp Refills Mirtazapine 45 MG Oral Tablet (Remeron) 90 Tab*2 Sig: TAKE 1 TABLET AT BEDTIMEAuthorizing Provider: TAMI SCHRADER User: LYRIC LUNA Tamsulosin HCl 0.4 MG Oral Capsule (Flomax)90 Cap*2 Sig: TAKE 1 CAPSULE EVERY MORNINGAuthorizing Provider:TAMI SCHRADER User: LYRIC LUNA documented in this encounter Plan of Treatment Upcoming Encounters Date Type Department Care Team (Late st Contact Info) Description 06/29/2024 2:30 PM EST Cardiac Studies Cardiac Studies, [facility] [address] [address] 08/25/2024 6:20 PM EDT Office Visit [facility] [address] [address] Tami Schrader, [address] [address] 02/27/2025 12:00 PM EDT Office Visit [facility] [address] [address] Tami Schrader DO [address] [address] Health Maintenance Due Date Last Done Comments [...] Additional history exists CKD PHOS USE SMARTSET 92650 10/21/20242 07/2023, 03/03/2023, 02/04/2022 CKD HGB USE SMARTSET 46753 12/06/202412/06, 10/22/2023, 10/22/2023, Additional history exists Colonoscopy [...] as of this encounter Visit Diagnoses Diagnosis Major depressive disorder, recurrent, in remission (HCC) Major depressive disorder, recurrent episode, in partial or unspecified remission Chronic kidney disease, unspecified CKD stage documented in this encounter Care Teams Barrel Raiser Relationship Specialty Start Date End Date Tami Schrader DO [address] [address] PCP - General Family Medicine 06/24/19 documented as of this encounter
--- OUTSIDE RECORDS SUMMARY | 2024-09-14 01:23 | External Medical Summary | Summary of Care ---
Author Name Unknown Organization [facility] Address [address] [facility] [place] [address] Phone [phone] Care Team Providers Care Bread Panner Name Role Phone Tami Schrader DO Primary Care Provider Reason for Referral * Medication Prior Authorization - Pending Review Specialty Diagnoses / Procedures Referred By Contac t Referred To Contact Diagnoses Major depressive disorder, recurrent, in remission (HCC) Amado Garcia, [facility] [address] [place] [address] Phone: tel: fax: Referral ID Status Reason Start Date Expiration Date V isits Requested Visits Authorized [id number] Pending Review [id number] Reason for Visit * Reason Comments eRx-Medication Refill Encounter Details Date Type Department Care Team (Late st Contact Info) Description 05/29/2024 Refill Family Practice [facility] [address] [place] [address] Tami Schrader DO [address] [place] [address] Major depressive disorder, recurrent, in remission (HCC)*; HTN, goal below 130/80 Allergies Active Allergy Reactions Criticality Noted Date Comments Sina Inhibitors 11/14/2016 Codeine Edema face/lips/tongue High 12/13/2020 Lisinopril Cough 11/28/2016 Morphine And Codeine Edema face/lips/tongue High documented as of this encounter (statuses as of 05/31/2024) Medications NITROGLYCERIN 0.4 MG SL SUBLIndications: Angina pectoris (HCC) One tablet under tongue if needed for chest pain. May repeat 3 times. If chest pain continues, call [phone] Tab 11 03/11/20 10 Active Additional Information [...] days 1 Each 1 02/12/20 22 Active Tamsulosin HCl 0.4 MG Oral Capsule [...] hemoglobin A1c goal of less than 8.0% ([facility]) Use to test blood sugar once daily. [...] XR)Indications:M ajor depressive disorder, recurrent, in remission ([facility]) TAKE 3 CAPSULES EVERY DAY 270 Capsule 3 05/31/20 24 Active Metoprolol Succinate ER 50 MG Oral Tablet Extended Release 24 Hour (toPROL XL)Indications:H TN, goal below 130/80 TAKE 1 TABLET EVERY MORNING 90 Tablet 3 05/31/20 24 Active Venlafaxine HCl ER 75 MG Oral Capsule Extended Release 24 Hour (Effexor XR) TAKE 3 CAPSULES BY MOUTH DAILY. 270 Capsule 10 03/22/20 23 2023 Discontinued Metoprolol Succinate ER 50 MG Oral Tablet Extended Release 24 Hour (toPROL XL)Indications:H TN, goal below 130/80 Take 1 Tablet by mouth in the morning. 90 Tablet 1 11/19/19 24 2023 Discontinued documented as of this encounter (statuses as of 05/31/2024) Active Problems Problem Noted Date Diagnosed Date [...] reflux 10/02/2007 Coronary artery disease invo lving [place] coronary artery of [place] heart without angina pectoris documented as of this encounter (statuses as of 05/31/2024) Resolved Problems Problem Noted Date Diagnosed Date Resolved Date Major depressive disorder, r ecurrent, in remission 02/15/2018 03/15/2019 Type 2 diabetes mellitus wit h hemoglobin A1c goal of less than 7.5% 11/14/2016 12/12/2019 Nephrolithiasis 11/12/2016 03/01/2019 Overview (11/12/2016): On CT 10/2016 ADVANCE DIRECTIVE INFORMATION 12/14/2006 04/04/2024 Overview (12/14/2006): Information offered-patient declined. documented as of this encounter (statuses as of 05/31/2024) Immunizations Name Administration Dates Next Due COVID-19 [...] encounter Miscellaneous Notes * Telephone Encounter - Amado Garcia RPh - 05/31/2024 10:07 AM EST Signed Prescriptions: Disp Refills Venlafaxine HCl ER 75 MG Oral Capsule Exte*270 Ca*3 Sig: TAKE 3 CAPSULES EVERY DAYAuthorizing Provider: TAMI SCHRADER User: AMADO GARCIA Metoprolol Succinate ER 50 MG Oral Tablet *90 Tab*3 Sig: TAKE 1 TABLET EVERY MORNINGAuthorizing Provider: TAMI SCHRADER User: AMADO GARCIA documented in this encounter Plan of Treatment Upcoming Encounters Date Type Department Care Team (Late st Contact Info) Description 08/25/2024 6:20 PM EDT Office Visit Family Practice [facility] [address] [place] [address] Tami Schrader DO [address] [place] [address] 02/27/2025 12:00 PM EDT Office Visit Family Practice [facility] [address] [place] [address] Tami Schrader DO [address] [place] [address] Health Maintenance Due Date Last Done Comments [...] 12/2023, 10/22/2023, Additional history exists Albumin/Creatinine Ratio 10/21/20242 024, 03/05/2023, 06/19/2021, Additional history exists B-12 10/21/2024 10/22/2023, 10/0 07/2022, 02/04/2022, Additional history exists CKD PHOS USE SMARTSET 64430 10/21/2024 05/2 07/2023, 03/03/2023, 02/04/2022 CKD HGB USE SMARTSET 95414 12/06/202412/06, 10/22/2023, 10/22/2023, Additional history exists Colonoscopy [...] Diagnosis Major depressive disorder, recurrent, in remission (HCC)- Primary Major depressive disorder, recurrent episode, in partial or unspecified remission HTN, goal below 130/80 Unspecified essential hypertension documented in this encounter Care Teams Bread Panner Relationship Specialty Start Date End Date Tami Schrader DO [address] [facility] [place] [address] PCP - General Family Medicine 06/24/19 documented as of this encounter
--- OUTSIDE RECORDS SUMMARY | 2024-09-14 01:23 | External Medical Summary | Summary of Care ---
Author Name Unknown Organization [facility] Address [address] [facility] [place] [address] Phone [phone] Care Team Providers Care Associate Professor Of Literacy Name Role Phone Tahir Schrader DO Primary Care Provider Reason for Visit * Reason Onset Date Comments Test Results 07/04/2024 Encounter Details Date Type Department Care Team (Late st Contact Info) Description 07/04/2024 Telephone Cardiology, [facility] [address] [place] [address] Bianka Johns CRNP [address] [place] [address] Test Results Allergies Active Allergy Reactions Criticality Noted Date Comments Sina Inhibitors 11/14/2016 Codeine Edema face/lips/tongue High 12/13/2020 Lisinopril Cough 11/28/2016 Morphine And Codeine Edema face/lips/tongue High documented as of this encounter (statuses as of 07/05/2024) Medications NITROGLYCERIN 0.4 MG SL SUBLIndications:A ngina pectoris (HCC) One tablet under tongue if needed for chest pain. May repeat 3 times. If chest pain continues, call [phone] Tab 11 0 Active Additional Information Patient not taking.Reported on 12/07/2023 zoster vac recomb adjuvanted (SHINGRIX) 50 MCG injection Inject 0.5 mL into a large muscle now and repeat dose in 60 to 180 days 1 Each 1 8 Active Zoster Vac Recomb Adjuvanted 50 MCG/0.5ML Intramuscular Suspension Reconstituted (Shingrix)Indicat ions:Need for shingles vaccine Inject 0.5 mL into a large muscle now and repeat dose in 60 to 180 days 1 Each 1 2 Active Losartan Potassium 100 MG Oral Tablet (Cozaar)Indicatio ns:Essential hypertension with goal blood pressure less than 140/90 Take 1 Tablet by mouth in the morning. 90 Tablet 3 4 Active Accu-Chek Guide w/Device KitIndications:Ty pe 2 diabetes mellitus with hemoglobin A1c goal of less than 8.0% (HCC) Use as directed. Use to test blood sugar once daily. E11.9 1 Kit 4 Active Aspirin 325 MG Oral Tablet Delayed Release Take 1 Tablet by mouth in the morning. Active Furosemide 20 MG Oral Tablet (Lasix)Indication s:Edema, unspecified type Take 1 Tablet by mouth in the morning. 90 Tablet 3 4 Active Accu-Chek Guide In Vitro Strip (Glucose Blood)Indications :Type 2 diabetes mellitus with hemoglobin A1c goal of less than 8.0% (HCC) Use to test blood sugar once daily. E11.9 100 Strip 3 4 Active Accu-Chek Softclix LancetsIndication s:Type 2 diabetes mellitus with hemoglobin A1c goal of less than 8.0% (HCC) Use to test blood sugar once daily. E11.9 100 Each 2 4 Active amLODIPine Besylate 5 MG Oral Tablet [...] as of this encounter (statuses as of 07/05/2024) Active Problems Problem Noted Date Diagnosed Date [...] reflux 10/02/2007 Coronary artery disease invo lving [place] coronary artery of [place] heart without angina pectoris documented as of this encounter (statuses as of 07/05/2024) Resolved Problems Problem Noted Date Diagnosed Date Resolved Date Major depressive disorder, r ecurrent, in remission 02/15/2018 03/15/2019 Type 2 diabetes mellitus wit h hemoglobin A1c goal of less than 7.5% 11/14/2016 12/12/2019 Nephrolithiasis 11/12/2016 03/01/2019 Overview (11/12/2016): On 10/2016 ADVANCE DIRECTIVE INFORMATION 12/14/2006 04/04/2024 Overview (12/14/2006): Information offered-patient declined. documented as of this encounter (statuses as of 07/05/2024) Immunizations Name Administration Dates Next Due COVID-19 mRNA, LNP-s, No Pre serve, 2-Dose Series ([employer]) 11/21/2020,10/24/2020 Covid-19, Mrna, Lnp-s, Pf, B ivalent, 30 Mcg, IM, 12 yrs and above ([employer]) 02/21/2022 Pneumococcal Conjugate Vacc, 13 Valent (Prevnar) [...] encounter Miscellaneous Notes * Telephone Encounter - Mayelin Chan LPN - 07/04/2024 3:15 PM EST Spoke with pt, verbalized understanding. * Telephone Encounter - Mayelin Chan LPN - 07/04/2024 9:56 AM EST Called pt, no answer, LMOM * Telephone Encounter - Mayelin Chan LPN - 07/04/2024 9:55 AM EST ----- Message from Bianka Johns sent at 07/03/2024 3:58 PM EST ----- Please call patient and give echo results. Heart pump function is normal, wall motion is normal, There is some mild calcium build up on his aortic valve, but it is not restricting the way in which the valve opens or closes which is great. Continue current medications/treatment plans. Keep next routine appt. Interpretation Summary The left ventricular cavity size is normal. The LV wall thickness is mildly increased (concentric). The left ventricular wall motion is normal. The qualitative LV ejection fraction is 55-59% (normal). The left ventricular diastolic function is mildly abnormal (grade I). Mild aortic valve sclerosis is present. Mild mitral regurgitation is present. Moderate tricuspid regurgitation is present. There is no evidence of pulmonary hypertension. Compared to prior study of February 23, 2024, there is no significant change. documented in this encounter Plan of Treatment Upcoming Encounters Date Type Department Care Team (Late st Contact Info) Description 08/09/2024 2:00 PM EDT Office Visit [facility] Capacstephan Castillo [address] [place] [phone] Monserrat Altamirano PA-C [address] [place] [address] Health Maintenance Due Date Last Done Comments [...] Additional history exists CKD PHOS USE SMARTSET 72646 10/21/202409/30, 03/03/2023, 02/04/2022 CKD HGB USE SMARTSET [id number] 12/06/202412/06, 10/22/2023, 10/22/2023, Additional history exists Colonoscopy [...] filedocumented as of this encounter Care Teams Associate Professor Of Literacy Relationship Specialty Start Date End Date Tahir Schrader DO [address] [place] [address] PCP - General Family Medicine 06/24/19 documented as of this encounter
[2024-09-14] MEDS: INSULIN ASPART PER UNIT CHARGE SC SCH ×2 (04:37→12:47)
[2024-09-14] MEDS: METOPROLOL SUCC 50MG EXT REL TAB PO SCH (07:30)
[2024-09-14 07:58] LABS: Hemoglobin 12.7 g/dl (14.0-18.0); Mean Corpuscular Hemoglobin 27.7 pg (25.0-34.0); Mean Corpuscular Hgb Conc 34.3 g/dL (32.0-36.0); Mean Corpuscular Volume 80.6 fL (80.0-100.0); Mean Platelet Volume 11.8 fL (9.4-12.4); Platelet Count 146 K/uL (130-400); RDW Coefficient of Variation 13.4 % (11.5-14.5); RDW Standard Deviation 38.6 fL (36.4-46.3); Red Blood Count 4.59 M/uL (4.70-6.10); White Blood Count 6.04 K/ul (4.8-10.8)
[2024-09-14] MEDS: INSULIN PROTOCOL GOAL RANGE ONE (08:18)
[2024-09-14] MEDS: VENLAFAXINE HCL XR 75 MG CAPXR PO SCH (08:18)
[2024-09-14] MEDS: POLYETHYLENE (MIRALAX) 17 GM PACK PO SCH (08:18)
[2024-09-14] MEDS: ROSUVASTATIN CALCIUM 20 MG TAB PO SCH (08:18)
[2024-09-14] MEDS: MODERATE STRESS LEVEL ONE (08:18)
[2024-09-14 08:26] LABS: Albumin Level 3.3 gm/dl (3.4-5.0); Bilirubin Direct 0.1 mg/dl (0-0.2); Bilirubin,Total 0.4 mg/dl (0.2-1.0); Calcium 8.6 mg/dl (8.6-10.3); Magnesium 2.1 mg/dl (1.7-2.4); Potassium 3.9 mmol/L (3.5-5.1)
[2024-09-14 08:34] LABS: BUN Creatinine Ratio 16.1 (10-20); Chol HDL Ratio 2.6 (0-5); Creatinine Clr Calc Pharmacy 36.4 ml/min; Total Protein 5.9 gm/dl (6.0-8.3)
[2024-09-14 08:45] LABS: Thyroid Stimulating Hormone 1.483 uIu/ml (0.300-4.500)
--- NOTE | 2024-09-14 08:55 | Pharmacy Report ---
Pharmacy Glycemic Short Note 2 - Date of Service September 14, 2024 - Glycemic Short BSG Results (Last 24 hours): 09/13/24 09/13/24 09/13/24 14:05 14:14 17:06 Glucose 464 H* POC Glucose 449 H* 315 H* 09/13/24 09/13/24 09/13/24 19:07 20:09 20:41 Glucose 252 H POC Glucose 324 H* 262 H 09/13/24 09/13/24 09/13/24 21:16 22:17 23:15 Glucose POC Glucose 242 H 181 H 144 H 09/14/24 09/14/24 09/14/24 00:35 01:34 03:59 Glucose POC Glucose 106 H 103 H 122 H 09/14/24 09/14/24 07:10 07:38 Glucose 146 H POC Glucose 122 H OUTPATIENT ANTIDIABETIC REGIMEN: * metformin 500 mg PO BIDM * empagliflozin 10 mg PO daily * sitagliptin 50 mg PO daily HbA1c: 14.1% (09/14/24) ASSESSMENT: * SEBASTIAN is a 79 year old male who was sent to ED from PCP office due to significant hyperglycemia and concern for DKA * Blood sugar of 449 mg/dL on presentation to the ED, insulin infusion initiated. Labs not suggestive of DKA. * A CT of the abdomen/pelvis was performed and shows urinary bladder mass suspicious for malignancy * Insulin infusion quickly titrated off with no basal insulin - blood sugar of 122 mg/dL this morning * Originally NPO, now ordered a diet * Confirmed with RN, patient did eat breakfast, which was not covered with Novolog (won't overreact to 254 mg/dL at lunch) PLAN FOR INPATIENT GLYCEMIC CONTROL: * Hold outpatient oral diabetes medications * Basal insulin * Lantus 20 units SC x 1 this afternoon * Lantus 0-5-10 units SC HS x 1 (see EHR for details) * Reassess in AM * Bolus insulin * NovoLog per scale ACHS or Q4hrs while NPO * Goal Range: Low 110 mg/dL - High 140 mg/dL * Correction Factor: 25 mg/dL/unit * Nutritional / Prandial insulin per carb ratio of 1 unit per 8 grams CHO consumed
--- NOTE | 2024-09-14 09:41 | Urology Progress Note ---
Date of Service September 14, 2024 Assessment & Plan (1) Mass of urinary bladder: Plan: 79 yo/M admitted for hyperglycemia and PAUL. Workup included a CT abd pelvis which noted a lobulated intraluminal mass anteriorly at the urinary bladder measuring 4 cm. Follow-up of bladder mass Patient afebrile, hemodynamically stable Labs reviewedcreatinine improved to 1.61, WBC 6.04, hemoglobin 12.7 Urine culture pending, follow culture Urine cytology is pending He is voiding spontaneously, denies gross hematuria Continue to monitor voiding If the patient develops urinary retention, then Arita catheter can be placed We discussed finding of bladder mass on CT No acute intervention at this time since he has been on aspirin Will plan for close outpatient follow-up for cystoscopy and discuss resection Continue supportive care and medical management per hospital medicine service will sign off, please contact our service with additional questions or concerns Admission and Anticipated Discharge Date Admission Date: September 13, 2024 Subjective Patient seen and examined at bedside this morning. No acute issues overnight. Denies flank or suprapubic pain. He is voiding spontaneously, denies gross hematuria at present. Denies fever or chills. Review of Systems Constitutional: as per Subjective / HPI Genitourinary: + as per Subjective / HPI Physical Exam Constitutional: no acute distress Respiratory: normal respiratory effort; no respiratory distress and no labored breathing Gastrointestinal (Abdomen): Inspection/Auscultation: abdomen normal to inspection Musculoskeletal: Head/Neck/Chest: normocephalic Neurologic: moves all extremities and awake Psychiatric: Orientation: alert and oriented x 3 Results & Data Vital Signs (Past 12 Hours) Vital Signs Temp Pulse Pulse Resp BP Pulse Ox O2 Del Method 09/14/24 07:08 36.5 C 52 L 19 108/67 96 Room Air 09/14/24 03:37 36.4 C L 55 L 18 112/64 96 Room Air 09/13/24 23:29 36.7 C 54 L 19 111/67 96 Room Air 09/13/24 22:00 58 L PG Care Time/CCT Total # of Minutes Spent Total Time Spent with Patient: Total time spent is greater than 50% in coordination of care (as documented) at patient's floor/unit and/or counseling patient: Coding Level of Care Code 49373 SUB INP/OBS CARE 2/35MIN Diagnoses Mass of urinary bladder N32.89
[2024-09-14 10:18] LABS: Estimated Average Glucose 358 mg/dl; Hemoglobin A1C 14.1 % (4.5-5.6)
--- NOTE | 2024-09-14 11:00 | Hospitalist Progress Note ---
Date of Service September 14, 2024 Assessment & Plan (1) Diabetes mellitus with hyperglycemia, without long-term current use of insulin: (2) Acute kidney injury: (3) Mass of urinary bladder: (4) Hematuria: (5) Hypomagnesemia: (6) Electrolyte abnormality: (7) Hypertension: (8) Chronic renal failure (CRF), stage 3a: (9) Coronary disease: Plan Patient has significantly improved when compared to yesterday. Renal function approaching baseline. Glucose much better controlled. Electrolyte abnormalities have improved Reviewed urology recommendations no plans for intervention this hospitalization, will follow-up as an outpatient Restart diabetic diet Pharmacy assisting and coordinating transition from IV insulin to subcutaneous insulin and glycemic management Diabetes education pending for today Blood pressure is significantly improved with fluid resuscitation, continue metoprolol, continue to hold other antihypertensive medications may need to be restarted at future date if blood pressure trends upward Updated patient's son via phone. Case management as anticipate discharge home in the next 24 hours Admission and Anticipated Discharge Date Admission Date: September 13, 2024 Subjective Patient feeling significantly better. Strength starting to return. Denies any visual hematuria. Physical Exam Physical Exam: Constitutional: Alert, nontoxic HEENT: Mucous membranes moist. Lungs: Clear to auscultation, decreased, no wheezes rales or rhonchi CV: S1-S2, regular Abdomen: Soft, nontender, nondistended Extremities: No significant edema Neuro: No focal deficits Psych: Cooperative, normal mood Results & Data Results & Data Vital Signs (Past 12 Hours) Vital Signs Temp Pulse Resp BP Pulse Ox O2 Del Method 09/14/24 10:38 36.7 C 59 L 18 113/63 98 Room Air 09/14/24 07:08 36.5 C 52 L 19 108/67 96 Room Air 09/14/24 03:37 36.4 C L 55 L 18 112/64 96 Room Air 09/13/24 23:29 36.7 C 54 L 19 111/67 96 Room Air Diagnostic Findings Reviewed imaging, laboratory and diagnostic studies. Pertinent findings as below. WBCs 6.0 Hemoglobin 12.7, dilutional decrease Sodium 138, improved Creatinine 1.61 significantly improved, nearing baseline Glucose 146 Lipid panel reviewed TSH 1.4 Magnesium 2.1
[2024-09-14] MEDS: LANTUS PER UNIT CHARGE SC ONE ×2 (12:47→20:32)
[2024-09-15 07:44] VITALS: RESP 18
[2024-09-15 08:35] LABS: Calcium 8.6 mg/dl (8.6-10.3); Potassium 3.7 mmol/L (3.5-5.1)
[2024-09-15 08:40] LABS: Creatinine Clr Calc Pharmacy 36.5 ml/min
[2024-09-15] MEDS: LANTUS PER UNIT CHARGE SC SCH (08:40)
[2024-09-15 11:17] VITALS: BP 112/71; PULSE 64; TEMP 98.1; O2SAT 94
--- NOTE | 2024-09-15 11:55 | Discharge Summary ---
Discharge Summary Date of Service September 15, 2024 Principal Dx & Hospital Course #1 = Principal Diagnosis (1) Diabetes mellitus with hyperglycemia, without long-term current use of insulin: (2) Acute kidney injury: (3) Mass of urinary bladder: (4) Hematuria: (5) Hypomagnesemia: (6) Electrolyte abnormality: (7) Hypertension: (8) Chronic renal failure (CRF), stage 3a: (9) Coronary disease: Plan Patient 79-year-old gentleman presented to the emergency room from his PCPs office with extremely elevated glucose. In the emergency room noted to be hyperglycemic with evidence of acute kidney injury. Also imaging revealed a bladder mass. Patient was admitted to the hospital. He was given IV fluid resuscitation and started on IV insulin. His glucose became controlled quite quickly. Hemoglobin A1c was greater than 14% indicating that his diabetes had been uncontrolled for quite some time. He was transition to subcutaneous insulin. And with the assistance of diabetes education and pharmacy transition to a basal bolus insulin regimen. As far as the bladder mass is concerned he was having microscopic hematuria not visible to him. He was evaluated by urology who recommended outpatient follow-up with planned outpatient cystoscopy. On the day of discharge his vital signs are stable. His electrolytes had improved. His renal function had returned returned to his baseline. He felt much more confident in his knowledge about managing his diabetes. He will be discharged home to follow-up with his PCP and urology. Notes For Next Care Provider Patient will need to follow-up with urology to further investigate bladder mass Follow-up with monitoring of renal function and diabetes monitoring Medication Changes From Visit Metformin discontinued due to renal function Januvia and Jardiance discontinued. Patient never started this medication it was too expensive for him Amlodipine and losartan discontinued due to well-controlled blood pressure and renal dysfunction Ibuprofen discontinued due to renal dysfunction Aspirin on hold due to hematuria and bladder mass and anticipated biopsy of bladder mass. Recommending aspirin be held until this has been addressed. Admission HPI Per Admitting Provider Patient is a 79-year-old gentleman with known diabetes just recently presented to his new PCP within the past month. He was complaining of significant polyuria at that time. Patient had some laboratory workup and was noted to be quite hyperglycemic with a significantly elevated hemoglobin A1c. Patient also was treated for urinary tract infection. Returned to his PCP again today complaining of weakness and fatigue and generalized malaise. Also reporting that his sugars are extremely elevated which is unusual for him. PCP sent him to the emergency room for concerns of DKA. In the emergency room severe hyperglycemia was confirmed. Patient was not in DKA. But he did show some evidence of acute kidney injury and hypotension most likely due to dehydration. Also had several electrolyte abnormalities. Referred to our service for further evaluation. At time of evaluation the patient is feeling a little bit better after 1 L of saline. Denies any fever or chills. No cough or cold symptoms. No chest pain or shortness of breath. Does admit to polydipsia and polyuria. Has not really noticed significant blood in his urine. States that his stools have been slightly abnormal and that they are not as frequent or as bulky over the last couple weeks. No blood in his stool. No swelling in his hands arms legs or feet. He is under the impression that his diabetes is very well- controlled and its only gotten out of control within the last couple weeks. When I informed him that his A1c was greater than 12 just about a year ago and greater than 9 2 years ago indicating that his diabetes has been uncontrolled for quite some time he seemed shocked to find out this information. He has never been on insulin. Has not even been regularly checking his sugar due to the fact that he thought his sugars are well-controlled. Patient denies any smoking. Reports that he has not had alcohol beverage for greater than 2 years. Admission Exam Per Admitting Provider See H&P Discharge Exam Constitutional: Alert HEENT: Mucous membranes moist. Lungs: Clear to auscultation, decreased, no wheezes rales or rhonchi CV: S1-S2, regular Abdomen: Soft, nontender, nondistended Extremities: No significant edema Neuro: No focal deficits Psych: Cooperative, normal mood Updated Medication List Medication Instructions Recorded Confirmed Type amlodipine 5 mg tablet 5 mg PO UD 09/13/24 09/13/24 History amoxicillin 500 mg capsule 500 mg PO BID 09/13/24 09/13/24 History aspirin 325 mg tablet 325 mg PO DAILY 09/13/24 09/13/24 History empagliflozin 10 mg tablet 10 mg PO UD 09/13/24 09/13/24 History (Jardiance) ibuprofen 800 mg PO DIRECTED PRN Pain 09/13/24 09/13/24 History losartan 100 mg tablet 100 mg PO UD 09/13/24 09/13/24 History metformin 500 mg tablet 500 mg PO BID 09/13/24 09/13/24 History metoprolol succinate 50 mg 50 mg PO UD 09/13/24 09/13/24 History tablet,extended release 24 hr mirtazapine 45 mg tablet 45 mg PO PM 09/13/24 09/13/24 History rosuvastatin 40 mg tablet 40 mg PO DAILY 09/13/24 09/13/24 History sitagliptin phosphate 50 mg tablet 50 mg PO UD 09/13/24 09/13/24 History (Januvia) tamsulosin 0.4 mg capsule 0.4 mg PO QAM 09/13/24 09/13/24 History venlafaxine 75 mg capsule,extended 225 mg PO DAILY 09/13/24 09/13/24 History release 24 hr insulin aspart U-100 100 unit/mL 5 unit (0.05 mL) subcut .QAC #15 mL 09/15/24 Rx (3 mL) subcutaneous pen (Novolog FlexPen U-100 Insulin aspart) insulin glargine 100 unit/mL (3 25 unit (0.25 mL) subcut QAM #15 mL 09/15/24 Rx mL) subcutaneous pen (Lantus Solostar U-100 Insulin) pen needle, diabetic 32 gauge x #100 ea 09/15/24 Rx 5/32" (Pen Needle) Hospital Stay Data Consultations 09/13/24 16:22 Consult Urology Routine 09/13/24 16:23 ED Decision to Admit Stat Diagnostic Imagining Performed 09/13/24 15:30 CT abd pelvis wo con Stat [facility] Potassium 3.7 Creatinine 1.6 Glucose 125 Hemoglobin 12.7 Hemoglobin A1c 14.1% Magnesium 2.1 Triglycerides 188 Cholesterol 80 LDL 11 HDL 31 TSH 1.48 Pending Results Patient Have Any Pending Studies at Discharge: No Discharge Instructions Given to Patient (Per Discharging Provider) Check your sugars before meals Follow-up with your PCP for ongoing management of your diabetes along with laboratory monitoring Follow-up with urology to pursue further evaluation of the bladder mass as scheduled through their office Total Time Total Time Spent Total Time Spent (In Minutes): 36
[2024-09-15] MEDS ORDERED: LANTUS PER UNIT CHARGE SC ONE (21:00)
== END 2024-09-15 15:00 | disposition home or self-care (01) | DRG 638 ==
LOC: ED 13:48 → INTOOBSV 17:18 → 2S 17:18